=== PATIENT | female | born 1995 | race Hispanic/Latino ===

== ENCOUNTER 2020-04-04 18:00 | Inpatient (IN) | payer OTHER ==
[~2020-04-04] VITALS: Ht 154.9 cm; Wt 76.2 kg
--- OUTSIDE RECORDS SUMMARY | ~2020-04-04 | XMS | Encounter Summary ---
Demographics + + + | Address | [address] | | | [place] [address] | + + + | Home Phone | | + + + | Preferred Language | Unknown | + + + | Marital Status | Unmarried Domestic Partner | + + + | Advent Affiliation | NRP | + + + | Race | Unknown | + + + | Ethnic Group | or | + + + Author + + + | Author | [facility] | + + + | Organization | [facility] | + + + | Address | Unknown | + + + | Phone | Unavailable | + + + Support + + +---------+ + | Name | Relationship | Address | Phone | + + +---------+ + | Fatuma Patel | ECON | Unknown | | + + +---------+ + Care Team Providers + +------+ + | Care Card Clothier Name | Role | Phone | + +------+ + | No Pcp Per Patient | PCP | Unavailable | + +------+ + Reason for Visit + + + | Reason | Comments | + + + | | | + + + | Insertion of IUD | | + + + Encounter Details +--------+---------+ + + + | Date | Type | Department | Care Team | Description | +--------+---------+ + + + | 08// | Office | [facility] JohnGeri dozier, | Encounter for IUD | | 2017 | Visit | [facility] | [address] | insertion (Primary | | | | Pavilion [address] | Dx) | | | | [address] | [place], [place] | | | | | Pavilion, 7th floor | [address] | | | | | [place], [place] | [phone] | | | | | [address] | | | | | | [phone] | | | +--------+---------+ + + + Social History + +-------+ +--------+------+ | Tobacco Use | Types | Packs/Day | Years | Date | | | | | Used | | + +-------+ +--------+------+ | Never Smoker | | | | | + +-------+ +--------+------+ + +---+---+---+ | Smokeless Tobacco: | | | | | Never Used | | | | + +---+---+---+ + + +---------+ + | Alcohol Use | Drinks/Week | oz/Week | Comments | + + +---------+ + | No | | | | + + +---------+ + + + + | Sex Assigned at | Date Recorded | | | | + + + | Not on file | | + + + + + + + | Job Start Date | Occupation | Industry | + + + + | Not on file | Not on file | Not on file | + + + + + + + + | Travel History | Travel Start | Travel End | + + + + + + | No recent travel history available. | + + documented as of this encounter Last Filed Vital Signs + + + + + | Vital Sign | Reading | Time Taken | Comments | + + + + + | Blood Pressure | 112/72 | 04/14/2017 3:05 PM | | | | | PDT | | + + + + + | Pulse | 76 | 04/14/2017 3:05 PM | | | | | PDT | | + + + + + | Temperature | 36.9 C (98.4 F) | 04/14/2017 3:05 PM | | | | | PDT | | + + + + + | Respiratory Rate | - | - | | + + + + + | Oxygen Saturation | - | - | | + + + + + | Inhaled Oxygen | - | - | | | Concentration | | | | + + + + + | Weight | 63.3 kg (139 lb 8 | 04/14/2017 3:05 PM | | | | oz) | PDT | | + + + + + | Height | 153 cm (5' 0.25") | 04/14/2017 3:05 PM | | | | | PDT | | + + + + + | Body Mass Index | 27.02 | 04/14/2017 3:05 PM | | | | | PDT | | + + + + + documented in this encounter Patient Instructions Patient Instructions Geri Lopez MD - 04/14/2017 3:00 PM PDTProgestin IUD Aftercare Instructions Progestin IUD (Mirena, Marissa, Liletta) Begins working to prevent in 7 days Use a backup method for the first 7 days Mirena & Kyleena is approved for 5 years Marissa & Liletta are approved for 3 years Congratulations on your progestin IUD! You have chosen a highly effective, long-lasting, r eversible contraceptive method. Here are some ways you can take care of yourself in the fir st 2 weeks following IUD placement, and some things to look out for while you are using your IUD. If you have any concerns about your IUD at any time, call the [facility] at so we can help. Follow-up No follow-up visit is necessary unless you have problems or questions but we do recommen d that you check on your IUD by feeling the strings 1-2 weeks after placement (see below for how to do this). If you feel more comfortable having us do this first check, you are welco me to have a follow up visit at the [facility]. How to Check IUD Strings ? Your IUD has strings attached that come out of your cervix into the back of the vagina. T hey are usually a few centimeters long. We recommend checking the strings 1-[address] acement to make sure the IUD is in place. ? To feel your strings, wash your hands and insert one finger into your vagina, feeling for the cervix. The cervix is located toward the back of the vagina and feels firm, like the ti p of your nose. Once you feel the cervix, feel for a string coming out of it. Take care not to pull on the string as you can pull out the IUD very easily. ? It is not required that you check your strings regularly, but it is a way to make sure yo ur IUD is in place. Image courtesy of [employer]. https://www.[employer].org.uk Progestin IUD User Frequently Asked Questions: Can I get on the IUD? ? with an IUD is very rare, but it can happen in less than 1% of women. If you szymanski ve any concern that you might be with the IUD, take a test. When does the IUD start working to prevent ? The Mirena, Marissa and Liletta IUDs take 7 days to become effective in preventing pregna ncy. If you decide to have sex before the first 7 days have passed, use a back-up method of contraception to prevent , like condoms. What if I m when the IUD is put in? Although we check a urine test prior to insertion of an IUD, some very early pregnancies may not be detectable on a urine test. If you have any concerns that you may have symptoms of with the IUD in place, please take a test and/or contact us. When can I return to my normal activities? You can safely return to work or school today. We recommend waiting a couple days to resume sexual activity to allow your uterus time to get used to having the IUD in place. It is safe for you to resume all activities, including exercise, as soon as you feel li ke it. Listen to your body. We recommend avoiding tampons for a few days following IUD placement but then it is fin e to use them as you normally would. Does the IUD protect me from sexually transmitted infections (STIs) or HIV/AIDS? ? The IUD does not provide protection against STIs or HIV/AIDS. Condoms are the only way to protect you from these infections. What can I do for pain and cramping? Mild to moderate cramping pain, similar to menstrual cramps, is normal for several days after your IUD placement. This discomfort should improve dramatically within the first 1-2 days after insertion. Some intermittent cramping may continue for 1-2 weeks after insertio n, but should be continually improving. You can treat cramping with a heating pad and an brmp-wnu-yrpqyvq pain medicine, such a s acetaminophen (Tylenol), ibuprofen (Advil, Motrin), and naproxen (Aleve) if needed. Read and follow all instructions on the label. If you are able to take NSAIDs (ibuprofen or naproxen), it can be helpful to take these medications on a scheduled basis for the first few days after insertion. Take with food/mi lk. Suggested regimens include: Naproxen 440mg (two 220mg tabs) twice daily for 3-5 days Ibuprofen 600mg (three 200mg tabs) every 6 hours for 3-5 days Ibuprofen 800mg (four 200mg tabs) every 8 hours for 3-5 days If you cannot take NSAIDs, you can take acetaminophen (Tylenol): Acetaminophen 650-1000 mg every 8 hours (do not exceed 3250mg of acetaminophen in a 24 hour time period) for 3-5 d ays If your pain is severe, worsening over time, and is not improving with these therapies, call the [facility] at [facility]. What bleeding changes can I expect? In the first 3-6 months after insertion, your body is adjusting and you may notice some changes to your bleeding pattern. During this time, your period may be irregular, and in some instances, your bleeding may temporarily increase. You may also have frequent spottin g or light bleeding. All of these changes are expected and very normal. With the progestin IUDs, your periods may get electrical engineering drafting officer, less frequent, or go away all to gether. In some women irregular bleeding persists. These changes in menstrual bleeding are normal and safe. Most women settle into a consistent bleeding pattern after 6 months of use. If you are not happy with the way the IUD impacts your bleeding pattern after 6 months, call your doct or or healthcare provider. Can the IUD come out? There is a small chance that your IUD will expel, or fall out. This happens in a bout 3-5% of women in the first year of use. The longer the IUD is in place, the less like ly you are to expel it. Some women notice this happening and others may not. Signs of an IUD falling out can i nclude an increase in cramping and bleeding, lengthening of the strings, feeling the device in the cervix or vagina, seeing the device, or not being able to feel the strings. An IUD that is falling out or has fallen out is not working to prevent . If yo u have any concerns for this, call the [facility] at [facility] to discuss this or to be seen. In the meantime, we recommend you use a backup method. IUD Warning Signs Call the [facility] at [facility] if you have any of the following symptoms afte r IUD insertion: Within the first 2 weeks of insertion: ? Fever of 101F or greater ? Chills ? Abnormal or foul-smelling vaginal discharge ? Severe pain in your pelvis or abdomen At any time: ? Pain with sex ? Concern that the IUD came out ? Positive home test or symptoms of ? You cannot feel IUD strings ? Any concerns If you have any more questions about your IUD, we recommend www.bedsider.org or us at [facility] s [facility] . documented in this encounter Progress Notes Sylwia Maravilla MA - 04/14/2017 3:56 PM PDT Catherine was roomed and the following services completed: Vital Signs, Medication, Allergi es, Pain and Substance Use Urine HCG Negative /Obtained 2 pt identifiers per protocol.wc. Readback performed. Tray Set Up Sarah Moralez MD - 04/14/2017 3:00 PM PDT6wk Note- IUD insertion 04/14/2017 ID: Catherine Meredith is a 22 y.o. female s/p uncomplicated on 03/02/2017. Preg lorin complicated by history of delivery at 36w0d and first child with hemophagocyti c lymphohistiocytosis who is currently in PICU s/p BMT. S- Feels well overall from a perspective. Back to normal activities [facility]. Per pt, he seems to be doing worse which is stressful and distressing for her. She states her family comes up from [place] every weekend to help and she feels adequate ly supported. She has also been receiving support from PICU SW. Mood- appropriately sad but denies any signs/sx of depression or anxiety Feeding type: breast feeding is going well, just got an electric pump which is helpful Pain: denies O: LMP 06/10/2016 | ? Unknown gen- NAD abd- soft nontender, fundus nontender IUD INSERTION PROCEDURE Negative test in clinic- patient hasn't had intercourse since delivery A complete discussion of the risks and benefits of IUD use and the details of the insertion procedure was held with the patient. We discussed the risks, including bleeding, infection, damage to surrounding structures, perforation, failure/ectopic , expulsion with lo ss to contraceptive efficacy, pain, vasovagal reaction. All questions were answered. A cons ent form was signed. Prior to the beginning of the procedure, the team paused to verify the patient s identity , the procedure to be performed (in accordance with the consent,) and the correct side/site. The patient was positioned appropriately. All relevant images and results were properly lab eled and displayed. We addressed antibiotic prophylaxis and fluids for irrigation as applica ble to this patient. Any safety precautions were addressed. Preprocedure medications: patient reports taking ibuprofen prior to her visit, heat pack pr ovided IUD Lot # [id number] The patient was placed in low lithotomy. A bimanual exam was performed and the uterus note d to be anteverted. A speculum was placed and the cervix swabbed with betadine. A tenacul um was placed on the anterior cervical lip. No cervical dilation was required and no paracer vical block was performed. The uterus was sounded to 8cms. The Mirena IUD was placed to the uterine fundus without difficulty. The strings were cut to 3cms. The tenaculum was remove d and hemostasis was ensured. The speculum was removed. The patient tolerated the procedur e well. A/P 22 y.o. female s/p uncomplicated on 03/02/17. Her course has bee n complicated by her first child in the PICU s/p BMT, living at [facility] and th e social/emotional stress associated with these things. Overall, she feels adequately suppor savana. Uncomplicated Mirena IUD placement today. - IUD placed today - Encouraged her to call or return with any questions or concerns - Provided AVS for progestin IUD - Offered meeting with Alysha Plata- patient declines at this time as she has been working with PICU SW - Reviewed signs/sx of mood disorder and although patient appears to be doing qu ite well given her circumstances, did discuss that she was at increased risk secondary to he r situation. She was quiet during visit but appropriate. Encouraged her to reach out at any time if she has any questions or concerns regarding her mood or if she needs subsequent supp ort or resources. This patient was seen and discussed with Dr. Portillo, who agrees with the assessment and plan . Geri Lopez MD PGY2, Obstetrics and Gynecology documented in this encounter Plan of Treatment Not on filedocumented as of this encounter Procedures + +--------+ + + + | Procedure Name | Priori | Date/Time | Associated Diagnosis | Comments | | | ty | | | | + +--------+ + + + | HCG URINE(N/C),POC | Routin | 04/14/2017 | Encounter for IUD | Results for this | | | e | 3:22 PM | insertion | procedure are in the | | | | PDT | | results section. | + +--------+ + + + documented in this encounter Results HCG URINE(N/C),POC (04/14/2017 3:22 PM PDT) + + + + + + | Component | Value | Ref Range | Performed | Pathologist | | | | | At | Signature | + + + + + + | HCG URINE, | Negative | Negative | [facility] - | | | POC | | | [facility] | | | | | | [facility] | | | | | | OF CARE | | | | | | TESTS | | + + + + + + + + | Specimen | + + | Urine - Urine | | (substance) | + + + + + + + | Performing | Address | City/State/Zipcode | Phone Number | | Organization | | | | + + + + + | [facility] | [address] | [place], [place] | | | [facility] | [facility] | [address] | | | TESTS | | | | + + + + + documented in this encounter Visit Diagnoses + + | Diagnosis | + + | Encounter for IUD insertion - Primary Encounter for insertion of intrauterine | | contraceptive device | + + documented in this encounter Administered Medications + +--------+ +--------+------+------+ | Medication Order | MAR | Action | Dose | Rate | Site | | | Action | Date | | | | + +--------+ +--------+------+------+ | levonorgestrel (MIRENA) 20 | Given | 04/14/20 | 1 each | | | | mcg/24 hr (5 years) intrauterine | | 17 4:13 | | | | | device 1 each 1 each, | | PM PDT | | | | | intrauterine, ONCE, 1 dose, Mon | | | | | | | 04/14/17 at 1615 | | | | | | + +--------+ +--------+------+------+ +---+---+ | | | +---+---+ documented in this encounter
--- OUTSIDE RECORDS SUMMARY | ~2020-04-04 | XMS | Clinical Summary ---
Demographics + + + | Address | [address] | | | [place] [address] | + + + | Home Phone | | + + + | Preferred Language | Unknown | + + + | Marital Status | Unmarried Domestic Partner | + + + | Rastafari Affiliation | NRP | + + + | Race | Unknown | + + + | Ethnic Group | or | + + + Author + + + | Author | [facility] REVENUE LOCATIONS | + + + | Organization | NON REVENUE LOCATIONS | + + + | Address | Unknown | + + + | Phone | Unavailable | + + + Support + + +---------+ + | Name | Relationship | Address | Phone | + + +---------+ + | Fatuma Patel | ECON | Unknown | | + + +---------+ + Care Team Providers + +------+ + | Care Audio Production Manager Name | Role | Phone | + +------+ + | No Pcp Per Patient | PCP | Unavailable | + +------+ + Source Comments [facility] is fully live on both [facility] and [facility] Allergies No Known Allergies Medications + + + +---------+------+------+-------+ | Medication | Sig | Dispensed | Refills | Star | End | Statu | | | | | | t | Date | s | | | | | | Date | | | + + + +---------+------+------+-------+ | vitamin | Take 1 tablet by | 60 | 3 | 06/ | | Activ | | +FE (VOL PLUS) 27 mg | mouth once daily. | tablet | | /20 | | e | | iron- 1 mg oral | | | | 17 | | | | tablet | | | | | | | + + + +---------+------+------+-------+ | docusate sodium | Take 1 capsule by | 80 | 2 | 06/2 | | Activ | | 100 mg oral capsule | mouth twice daily as | capsule | | 5/20 | | e | | | needed. | | | 17 | | | + + + +---------+------+------+-------+ | ibuprofen 600 mg | Take 1 tablet by | 30 | 0 | 08/0 | | Activ | | oral tablet | mouth every six | tablet | | 7/20 | | e | | | hours as needed. | | | 17 | | | + + + +---------+------+------+-------+ Active Problems + + + | Problem | Noted Date | + + + | Encounter for supervision of normal in third trimester | 02/19/2017 | + + + + + | Overview: Transfer of Care from [facility] at | | 36 weeks (pt's older child admitted at [facility])- FoB: | | Wren- Dating Criteria: [LMP=22wk US] - [ ] Labs: Rh | | [+], Ab [neg], Rubella [immune], GC/CT/HIV/HepBSAg/RPR [neg], 3rd | | trimester RPR [ ] - [x] HgbA1C: 4.9% - [x] Pap: 01/2017 NILM - | | [x] CBC: Hct [33] , Plt [211], 3rd trimester CBC: Hct [36], Plt | | [199] - [x] Urine Cx (12-16wks): insignificant growth - [x] 2hr | | gtt at 24-28wks: normal 1hr GTT (104)- [ ] Flu Shot (May-Aug):- | | [x] Tdap (27-36wks): 01/20- [ ] Genetic Screening (SS#1:11-14wks, | | SS#2: 15-20wks): n/a due to scant care. Normal anatomy | | scan.- [ ] Ultrasounds: 11/14/2016 (22w3d): SIUP, cephalic, | | anterior placenta w/o previa. TVCL 3.9cm. Incomplete but normal | | anatomy 11/28/16 (24w3d): Normal anatomy complete, mild | | polyhydramnios with MVP 8.2cm 02/19/2017 (36w2d): BSUS cephalic, | | NIA 13- [x] GBS at 35wks: negative- [x] sex: Girl- [ ] MOD: | | Expected vaginal. Planning private cord blood banking.- [ ] | | ToD: Expectant management- [ ] :- [ ] MOC: LARC | | options discussed 02/19. Considering nexplanon vs post-placental | | Mirena, readdress next visit Last Assessment & Plan: Seen by | | Alysha Plata, will get help with bed, and check on next | | weekCephalic by ultrasoundReviewed resources, how to access L&D | |- [ ] MOC: LARC options discussed 02/19. Considering nexplanon vs post-placental Mirena, re address next visit | | | | | | Last Assessment & Plan: Seen by Alysha Plata, will get help with bed, and check on nex t week | |Cephalic by ultrasound | |Reviewed resources, how to access L&D | + + + + + | History of delivery | 02/19/2017 | + + + + + | Overview: Reportedly with advanced cervical dilation to 3cm | | at 34 weeksDelivery at 36 weeks after PPROM, rapid laborCounseled | | by Jake PÉREZ 11/18/16 at 22w3d. Declined 17-OHP due to fear of | | needles; had lapse in care so did not use vaginal progesterone | | Last Assessment & Plan: 02/19/2017: Reviewed obstetric history. | | PPROM, PTL precautions reviewed. | + + Family History + + +------+ + | Medical History | Relation | Name | Comments | + + +------+ + | Other | Child | | Hemophagocytic Lymphohistiocystosis (HLH) | | | | | currently here at [facility] receving a Bone | | | | | Marrow Transplant | + + +------+ + | Diabetes | Maternal | | | | | Grandmoth | | | | | er | | | + + +------+ + | Hypertension | Mother | | | + + +------+ + + +------+--------+ + | Relation | Name | Status | Comments | + +------+--------+ + | Child | | | | + +------+--------+ + | Maternal Grandmother | | | | + +------+--------+ + | Mother | | | | + +------+--------+ + Social History + +-------+ +--------+------+ | [...] recent travel history available. | + + Last Filed Vital Signs + + + [...] + + + | Respiratory Rate | 16 | 03/04/2017 9:42 AM | | | | | PDT | | + + + + + | Oxygen Saturation | 99% | 03/04/2017 9:42 AM | | | | | PDT | [...] | | + + + + + Plan of Treatment + + + + + | Health Maintenance | Due Date | Last Done | Comments | + + + + + | Influenza (Flu) | | 12/10/2010, 07/15/2007 | | | vaccination (#1) | 9 | | | + + + + + | Pneumococcal | Aged Out | | No longer eligible | | vaccination | | | based on patient's | | | | | age to complete this | | | | | topic | + + + + + Results Not on filefrom Last 3 Months Insurance + +--------+ +--------+-------+---------+--------+ | Payer | Benefi | Subscriber | Effect | Phone | Address | Type | | | t Plan | ID | jose martin | | | | | | / | | Dates | | | | | | Group | | | | | | + +--------+ +--------+-------+---------+--------+ | [employer] | [employer] | xxxxxxxxxx | | | | Medica | | | PROVID | | [id number] | | | id | | | ENCE | | esent | | | | | | HLTH | | | | | | | | SHARE | | | | | | + +--------+ +--------+-------+---------+--------+ + +--------+ +--------+ + + | Guarantor Name | Accoun | Relation to | Date | Phone | Billing Address | | | t Type | Patient | of | | | | | | | | | | + +--------+ +--------+ + + | MasoudCatherine Ollie | Person | Self [birth year] | [address] | | | [place] | | 1994 | [phone] | [place] [address] | | | lynda | | | 6 (Home) | | + +--------+ +--------+ + + Advance Directives + + + + + | Code Status | Date | Date | Comments | | | Activated | Inactivated | | + + + + + | Full Code | 03/02/2017 | 03/04/2017 | | | | 2:23 PM | 10:38 PM | | + + + + + + + + +---+ | | | | | + + + +---+ | Full Code | 03/02/2017 | 03/02/2017 | | | | 7:49 AM | 2:23 PM | | + + + +---+
--- OUTSIDE RECORDS SUMMARY | ~2020-04-04 | XMS | Encounter Summary ---
Demographics + + + | Address | [address] | | | [place] [address] | + + + | Home Phone | | + + + | Preferred Language | Unknown | + + + | Marital Status | Unmarried Domestic Partner | + + + | Methodist Affiliation | NRP | + + + | Race | Unknown | + + + | Ethnic Group | or | + + + Author + + + | Author | [facility] | + + + | Organization | [facility] | + + + | Address | Unknown | + + + | Phone | Unavailable | + + + Support + + +---------+ + | Name | Relationship | Address | Phone | + + +---------+ + | Fatuma Patel | ECON | Unknown | | + + +---------+ + Care Team Providers + +------+ + | Care C Application Developer Name | Role | Phone | + +------+ + | No Pcp Per Patient | PCP | Unavailable | + +------+ + Reason for Visit +--------+ + | Reason | Comments | +--------+ + | New Ob | | +--------+ + Maternity Services (Routine) +--------+--------+ + + + + | Status | Reason | Specialty | Diagnoses / | Referred By | Referred To | | | | | Procedures | Contact | Contact | +--------+--------+ + + + + | Closed | | Obstetrics & | Diagnoses | [facility] | | | | Gynecology | | Epic Dept | [facility] | | | | | | | [address] | | | | | | | [address] | | | | | | | [address] | | | | | | | [address] | | | | | | | floor | | | | | | | [place], [place] | | | | | | | [address] | | | | | | | Phone: | | | | | | | [phone] | | | | | | | Fax: | | | | | | | [phone] | +--------+--------+ + + + + Encounter Details +--------+ + + + + | Date | Type | Department | Care Team | Description | +--------+ + + + + | 02/19/ | [facility] | Louise Paez, | New Ob | | 2017 | Initial | [facility] | ,[facility] [address] | | | | | [address] | [address] | | | | | [address] | [place], [place] | | | | | [address] | [address] | | | | | [place], [place] | [phone] | | | | | [address] | | | | | | [phone] | | | +--------+ + + + + Social History + +-------+ [...] + + + | Blood Pressure | 116/68 | 02/19/2017 2:43 PM | | | | | PDT | | + + + + + | Pulse | - | - | | + + + + + | Temperature | - | - | | + + + + + | Respiratory Rate | - | - | | + + + + + | Oxygen Saturation | - | - | | + + + + + | Inhaled Oxygen | - | - | | | Concentration | | | | + + + + + | Weight | 67.8 kg (149 lb 6.4 | 02/19/2017 2:43 PM | | | | oz) | PDT | | + + + + + | Height | 152.6 cm (5' 0.08") | 02/19/2017 2:43 PM | | | | | PDT | | + + + + + | Body Mass Index | 29.1 | 02/19/2017 2:43 PM | | | | | PDT | | + + + + + documented in this encounter Patient Instructions Patient Instructions Louise Preston MD,MPH - 02/19/2017 4:00 PM PDTIt was nice to meet yo u today! I wish your son the best of luck. Contact information for questions/concerns: To contact your provider, please call the [facility] clinic at during daytime hours. The number for Labo r and Delivery is [phone]. Reasons to call the doctor: If you are concerned that your baby isn t moving enough: After a meal, lie down on your side (either side is fine). Record baby movements, baby should move 10 times in 2 hours. If baby does not move 10 times in 2 hours, call Labor and Delivery immediately. Bag of water: A gush or trickle of fluid from your vagina may mean your bag of water has broken. Put on a sanitary pad and call Labor and Delivery. Note the time and color of the fluid. You may take a shower No tub bath or sex. Bleeding: A small amount of bleeding or spotting with a mucous discharge after a pelvic exam or sex m ay be normal, bleeding like a period or more is not. If you are having any concerns about bleeding, call Labor and Delivery. Chills and fever If you are having chills and/or a fever greater than 100.4o F, call Labor and Delivery. Headache, visual changes, abdominal pain or vomiting, or any of the following: Headaches that are not relieved with rest, hydration, and Tylenol. Visual changes such as blurring or difficulty seeing. Heartburn not relieved by an antacid (Maalox, Tums, Mylanta, etc) Constant abdominal pain or vomiting. Call Labor and Delivery immediately. Contractions (labor pains): Contractions will become longer and stronger and remain long and strong in any position, i. e. walking, resting on your side, sitting or standing. Don t forget to drink water or fluids every couple of hours and eat small frequent meals, i.e. soup, crackers, toast and fruit. Contractions will become difficult to walk and talk through this is when you start to t duane the contractions. Time contractions from the start of one contraction to the start of the next. If you are in constant, severe pain with no relief between contractions, call Florentin montiel. Visit - Week 36 What if it s a BOY? Parents can sometimes be confused about whether they should have their baby boy circumcised . It s a very personal decision and may be guided by personal or health reasons. It may be helpful to gather some information about some of the pros and cons of circumcision and th e things to think about when making your decision. The [employer] has some helpful information that you can find by going to: www.healthychildren.org and searching for circumcision . If you decide to have your baby boy circumcised, it can sometimes be done during your hospi nadeen stay. Check to see if your insurance company will pay for it ..some don t, in which case you will have to pay for the procedure. At [facility], it s possible to have the procedur e done in either our Pediatric or Family Medicine clinics at one of the first pediatric appo intments. If you plan to take your baby to a private clinic for pediatric care, call that [facility] and find out if that provider actually does circumcisions (not all do). Car Seats Automobile accidents are the leading cause of in people ages 1-45. You will need an approved car seat to take your baby home from the hospital. Let us know if you need help ob taining a car seat for your . Arrange to have your car seat in your hospital room on the day of discharge ..we will help tailor the fit to your baby. If you re uncertain about fitting your baby s car seat into your car, we can help you: Car Seat Safety Checks at [facility] Call [phone] to schedule an appointment Hours: Mon Fri, 10am - 3pm documented in this encounter Progress Notes Louise Preston MD,MPH - 02/19/2017 4:00 PM PDT OB Visit ID: Catherine Meredith is a 22 y.o. at 36w2d by LMP=22wk US here to establish OB car e. HPI: Transfer of care at 36 weeks as her 5yo son is admitted to [facility] with hemophagoc ytic lymphohistocytosis and in need of a bone marrow transplant, so she would like to delive r at [facility]. She is originally from [place], and had a few visits there, but subsequently m elizabeth to the [place] area when her son fell ill. She also had a few visits at [facility] while her son was admitted to [facility]. Today, she feels well overall. Staying at [facility] and requests refill of PNV s to [facility] pharmacy. Here with a friend while FOB is with her eldest son. Many questions to day about whether the hospital will give her a car seat/diaper bag, what type of formula to feed the baby, location of labor and delivery, how will she know if she lost her mucus plug, etc. Denies contractions, VB, LOF, THAO, vision changes, RUQ pain. Good movement. This was an unplanned ; was not using contraception at the time. Has used a Miren a IUD in the past. Would eventually like more children but undecided re: PPBCM. complicated by: #History of delivery: PPROM followed by rapid labor at 36 weeks. 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 LMP: 06/10/2016. Periods regular, q 28 days, lasting 5 days. Last pap: 7, normal. Hx abnormal Pap smears: no. Hx STD's: No. Medical History: Past Medical History: Diagnosis Date History of chicken pox Surgical History: Past Surgical History Procedure Laterality Date Tonsillectomy 1998 Family History: Family History Problem Relation Other Child Hemophagocytic Lymphohistiocystosis (HLH) currently here at [facility] receving a Bone Marrow T ransplant Hypertension Mother Diabetes Maternal Grandmother Social History: Social History Substance Use Topics Smoking status: Never Smoker Smokeless tobacco: Never Used Alcohol use No Social History Narrative LW: Live with boyfriend and son in a home in [facility] ([place] Cats in home: No. Cat litter box? N/A. Working smoke alarms: Yes. Guns in the house: NO. Methodist preference: Caltholic. Agreeable to blood transfusion: Yes. Racial ethnicity: /. Primary Language: Malian. Years of Education. Degree in GED. Pt currently unemployed, and her /partner works as cook. Domestic Violence: No. Medications: Current Outpatient Prescriptions: MEDICAL SUPPLY, MISCELLANEOUS (RX ELECTRIC BREAST PUMP), Indications: ROUTINE Z39.2 (ICD10) V24.1 (ICD9), Disp: 1 each, Rfl: 0 vitamin +FE (VOL PLUS) 27 mg iron- 1 mg oral tablet, Take 1 tablet by mouth once d aily., Disp: 60 tablet, Rfl: 3 Allergies: Allergies No Known Allergies ROS: Otherwise negative except those symptoms mentioned in HPI. Physical Exam BP 116/68 | Ht 1.526 m (5' 0.08") | Wt 67.8 kg (149 lb 6.4 oz) | LMP 06/10/2016 | BMI 29.1 kg/(m^2) Gen: NAD Abd: soft, nontender, gravid Fundal Height: 35 FHT: 130s Ext: 2+ pulses, no edema BSUS: Cephalic, NIA 13.1 Urine dipstick shows trace leuks, negative for all other components Assessment and Plan: Catherine Meredith is a 22 y.o. at 36w2d here for a return OB v isit with the following issues: Patient Active Problem List Diagnosis Date Noted Encounter for supervision of normal in third trimester 02/19/2017 Priority: 1 Overview Note: Transfer of Care from [facility] at 36 weeks (pt's older child admitted at [facility]) - FoB: Bernard - Dating Criteria: [LMP=22wk US] - [ ] Labs: Rh [+], Ab [neg], Rubella [immune], GC/CT/HIV/HepBSAg/RPR [neg], 3rd t rimester RPR [ ] - [x] HgbA1C: 4.9% - [x] Pap: 01/2017 NILM - [x] CBC: Hct [33] , Plt [211], 3rd trimester CBC: Hct [36], Plt [199] - [x] Urine Cx (12-16wks): insignificant growth - [x] 2hr gtt at 24-28wks: normal 1hr GTT (104) - [ ] Flu Shot (May-Aug): - [x] Tdap (27-36wks): 01/20 - [ ] Genetic Screening (SS#1:11-14wks, SS#2: 15-20wks): n/a due to scant care. N ormal anatomy scan. - [ ] Ultrasounds: 11/14/2016 (22w3d): SIUP, cephalic, anterior placenta w/o previa. TVCL 3.9cm. Incomplete b ut normal anatomy 11/28/16 (24w3d): Normal anatomy complete, mild polyhydramnios with MVP 8.2cm 02/19/2017 (36w2d): BSUS cephalic, NIA 13 - [ ] GBS at 35wks: collected 02/19/2017 - [x] sex: Girl - [ ] MOD: Expected vaginal. Planning private cord blood banking. - [ ] ToD: Expectant management - [ ] : - [ ] MOC: LARC options discussed 02/19. Considering nexplanon vs post-placental Mirena, re address next visit Assessment & Plan Note: 02/19/2017: First visit at [facility] today. Cephalic on BSUS. GBS collected. Unplan tamir --discussed PPBCM options especially as patient would be good candidate for imm ediate LARC (pt distance from [facility], high risk of loss to follow up in light of ol franklyn child's acute medical needs). Considering nexplanon vs post-placental mIUD. -Rx for breast pump and refill of vitamin given -Will alert Alysha Plata of patient's case as she had many questions re: resources today -Precautions reviewed -RTC 1 week History of delivery 02/19/2017 Priority: 2 Overview Note: Reportedly with advanced cervical dilation to 3cm at 34 weeks Delivery at 36 weeks after PPROM, rapid labor Counseled by Jake PÉREZ 11/18/16 at 22w3d. Declined 17-OHP due to fear of needles; had laps e in care so did not use vaginal progesterone Assessment & Plan Note: 02/19/2017: Reviewed obstetric history. PPROM, PTL precautions reviewed. RTC 1 week. The patient was seen with Dr. Hall, who agrees with the assessment and plan. Louise Preston MD,MPH eannine Mata M A - 02/19/2017 3:59 PM PDT Catherine was roomed and the following services completed: Vital Signs, Medication, Allergi es, Pain and Substance Use Urine Dipstick /Obtained two patient identifiers per protocol. Abdominal Ultrasound d ocumented in this encounter Plan of Treatment Not on filedocumented as of this encounter Procedures + +--------+ + + + | Procedure Name | Priori | Date/Time | Associated Diagnosis | Comments | | | ty | | | | + +--------+ + + + | STREP B OB DNA PCR | Routin | 02/19/2017 | Encounter for | Results for this | | W/RFLX IF IND, SWAB | e | 3:16 PM | supervision of other | procedure are in the | | | | PDT | normal in | results section. | | | | | third trimester | | + +--------+ + + + | UA 4 DIP N/C, POC | Routin | 02/19/2017 | Encounter for | Results for this | | | e | 3:13 PM | supervision of other | procedure are in the | | | | PDT | normal in | results section. | | | | | third trimester | | + +--------+ + + + documented in this encounter Results STREP B OB DNA PCR W/RFLX IF IND, SWAB (02/19/2017 3:16 PM PDT) + + + + + + | Component | Value | Ref Range | Performed | Pathologist | | | | | At | Signature | + + + + + + | GROUP B DNA | Negative | Negative | [facility] | | | , PCR | | | LABORATORY | | | | | | SERVICES, | | | | | | CORE | | + + + + + + | PEN/CEPH | No | | [facility] | | | ALLERGY | | | LABORATORY | | | | | | SERVICES, | | | | | | CORE | | + + + + + + + + | Specimen | + + | Swab - Pooled | | specimen from | | vaginal introitus | | and rectal swab | | (specimen) | + + + + + + + | Performing | Address | City/State/Zipcode | Phone Number | | Organization | | | | + + + + + | [facility] | [address] | [place] [address] | | | SERVICES, CORE | [address] | | | + + + + + UA 4 DIP N/C, POC (02/19/2017 3:13 PM PDT) + + + + + + | Component | Value | Ref Range | Performed | Pathologist | | | | | At | Signature | + + + + + + | APPEARANCE | Clear | | [facility] - | | | (UA DIP), | | | [facility] | | | POC | | | [facility] | | | | | | OF CARE | | | | | | TESTS | | + + + + + + | COLOR (UA | Yellow | | [facility] - | | | DIP), POC | | | [facility] | | | | | | [facility] | | | | | | OF CARE | | | | | | TESTS | | + + + + + + | GLUCOSE (UA | Negative | Negative - | [facility] - | | | DIP), POC | | Trace mg/dL | [facility] | | | | | | [facility] | | | | | | OF CARE | | | | | | TESTS | | + + + + + + | PROTEIN (UA | Negative | Neg - Trace | [facility] - | | | DIP), POC | | mg/dL | [facility] | | | | | | [facility] | | | | | | OF CARE | | | | | | TESTS | | + + + + + + | LEUKOCYTES | Trace (A) | Negative | [facility] - | | | (UA DIP), | | | [facility] | | | POC | | | [facility] | | | | | | OF CARE | | | | | | TESTS | | + + + + + + | NITRITES | Negative | Negative | [facility] - | | | (UA DIP), | | | [facility] | | | POC | | | [facility] | | [...] [facility] | [address] | [place], [place] | | | [facility] | [facility] | [phone] | | | TESTS | | | | + + + + + documented in this encounter Visit Diagnoses + + | Diagnosis | + + | Encounter for supervision of other normal in third trimester - Primary | + + documented in this encounter
--- OUTSIDE RECORDS SUMMARY | ~2020-04-04 | XMS | Encounter Summary ---
Demographics + + + | Address | [address] | | | [place] [address] | + + + | Home Phone | | + + + | Preferred Language | Unknown | + + + | Marital Status | Unmarried Domestic Partner | + + + | Sabianist Affiliation | NRP | + + + | Race | Unknown | + + + | Ethnic Group | or | + + + Author + + + | Author | [facility] | + + + | Organization | [facility] | + + + | Address | Unknown | + + + | Phone | Unavailable | + + + Support + + +---------+ + | Name | Relationship | Address | Phone | + + +---------+ + | Fatuma Patel | ECON | Unknown | | + + +---------+ + Care Team Providers + +------+ + | Care Booster Station Operator Name | Role | Phone | + +------+ + | No Pcp Per Patient | PCP | Unavailable | + +------+ + Reason for Visit AUTH/CERT +--------+--------+ + + + + | Status | Reason | Specialty | Diagnoses / | Referred By | Referred To | | | | | Procedures | Contact | Contact | +--------+--------+ + + + + | | | | | | | +--------+--------+ + + + + Encounter Details +--------+ + + + + | Date | Type | Department | Care Team | Description | +--------+ + + + + | 03/02/ | Hospital | [facility] [address] | Abby Ireland, | | | 2017 - | Encounter | [address] | MD [address] [facility] | | | | | [id number] | [address] | | | 03/04/ | | Nicky | [place], [place] | | | 2016 | | [facility] | [address] | | | | | [place], [place] | [phone] | | | | | [address] | | | | | | [phone] | | | +--------+ + + + [...] + + + | Blood Pressure | 120/73 | 03/04/2017 9:42 AM | | | | | PDT | | + + + + + | Pulse | 76 | 03/04/2017 9:42 AM | | | | | PDT | | + + + + + | Temperature | 36.5 C (97.7 F) | 03/04/2017 9:42 AM | | | [...] + + + + | Weight | 68 kg (150 lb) | 03/02/2017 7:15 AM | | | | | PDT | | + + + + + | Height | 154.4 cm (5' 0.8") | 03/02/2017 7:15 AM | | | | | PDT | | + + + + + | Body Mass Index | 28.53 | 03/02/2017 7:15 AM | | | | | PDT | | + + + + + documented in this encounter Discharge Summaries Ann-Marie Dickens MD - 03/04/2017 6:38 AM PDT INPATIENT PROVIDER DISCHARGE SUMMARY Admission date: 03/02/2017 Discharge date: 03/04/2017 Principal final Diagnosis Yusuf at 37w6d, delivered History of PPROM at 36 weeks in prior 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 at 37w6d who presented to L&D for labor. Her pregnan cy was complicated by the above. She was admitted for labor. She needed nothing for augmenta tion and had an epidural for pain control. She had a normal spontaneous vaginal delivery aneudy t was uncomplicated over an intact perineum. She delivered a viable infant with weight and A pgars above. The patient was transferred to the mother baby unit where she recovered as expected. On PP D#2 her pain was well controlled, she was voiding, passing gas, ambulating and meeting all p ost milestones and was ready for discharge. She plans to continue and t o use a mirena IUD for control to be placed at her 6 week visit. Diet Regular Activities/Other orders: * No strenuous activity or heavy lifting greater than 10 lbs for 6 weeks. * If you had a section, no tub bathing, hot-tubs, or swimming for 6 weeks. Showers OK. * Nothing in the vagina for 6 weeks (no sexual intercourse, tampons, or douching) * Please do not drive while under the influence of narcotics or for the first 2 weeks if yo u had a section * OK: walk up stairs and perform minimal housework Contact information for questions/concerns: To contact your provider, please call the [facility] clinic at during daytime hours. Reasons to call the doctor: 1. Difficulty breathing or unusual shortness of breath 2. Redness around or drainage from any incision site(s) or the vagina 3. Temperature above 100.4 F 4. Increasing abdominal pain that is not relieved by pain medications 5. Persistent nausea or vomiting 6. Vaginal bleeding requiring > 1 pad per hour Follow Up Follow up with [facility]ident [facility] 6 weeks post . DISCHARGE MEDICATIONS Current Discharge Medication List START taking these medications Details docusate sodium 100 mg oral capsule Take 1 capsule by mouth twice daily as needed. Qty: 80 capsule, Refills: 2 ibuprofen 600 mg oral tablet Take 1 tablet by mouth every six hours as needed. Take with fo od; do not exceed 5 tablets in 24 hours Qty: 80 tablet, Refills: 1 CONTINUE these medications which have NOT CHANGED Details vitamin +FE (VOL PLUS) 27 mg iron- 1 mg oral tablet Take 1 tablet by mouth once da lynda. Qty: 60 tablet, Refills: 3 Discharging Provider: Chrissie Discharging Attending: Tor PCP: NO PCP PER PATIENT Associated attestation - Eliud Lentz CNM - 03/04/2017 9:07 AM PDTATTENDING PROVIDER DISCHARGE SUMMARY ATTESTATION: Pt seen and examined with OB team interdisciplinary rounds 03/04/2017. Agree with discharge summary. Stable for discharge today. All questions answered. Follow-up as scheduled. ELIUD LENTZ CNM Instructor Department of [facility] [phone] documented in this encounter Discharge Instructions Instructions Riri Chopra, RN,IBCLC - 03/04/2017We have reviewed with you your home ca re instructions regarding care after . The Mother and Baby Care Booklet provided to yo u in the hospital is a guide you can use to prepare you for the first few days and weeks at home. You may also download the web lavelle and access helpful videos and important mother and new baby care information whenever and wherever you need it. For urgent requests, please contact the provider you plan to follow up with in clinic. Follow-up with your provider in 2 & 6 weeks. Please call to schedule your appoint ments. Discharge Nurse: Linda Wilkes RN Date: 03/04/2017 Discharge Time: 7:10 AM Discharge Feeding plan With baby: Enjoy holding your baby skin to skin to encourage Breast feed on demand - Follow baby's early feeding readiness cues Expect your baby to be interested in feeding a minimum of 8-12 times in a 24hr period Use breast compression to maximize breast milk transferred while baby is at breast Observe position & latch/suckling pattern at breast, look and listen for swallows If your breasts feel too full or uncomfortable, use warm cloth/shower before feeding to imp rove how your milk flows out of the breast. Then use cool packs on breasts after each feed. Schedule an outpatient appointment ([phone]) within the next 2-3 days, soon er if you have nipple pain, breast fullness does not soften after each feed, or redness and pain begin or worsen. This link will take you to the CDC website for the most current advice on storing your marbella carrascoiljuan safely at home: https://www.cdc.gov//recommendations/handling_breastmilk.htm rn lactation consultant: Riri Chopra RN,IBCLC documented in this encounter Medications at Time of Discharge + + + +---------+ + + | Medication | Sig | Dispensed | Refills | Start | End Date | | | | | | Date | | + + + +---------+ + + | docusate sodium | Take 1 capsule by | 80 | 2 | 03/02/20 | | | 100 mg oral capsule | mouth twice daily as | capsule | | 17 | | | | needed. | | | | | + + + +---------+ + + | vitamin | Take 1 tablet by | 60 | 3 | 02/20/20 | | | +FE (VOL PLUS) 27 mg | mouth once daily. | tablet | | 17 | | | iron- 1 mg oral | | | | | | | tablet | | | | | | + + + +---------+ + + documented as of this encounter Progress Notes Eliud Lentz CNM - 03/04/2017 6:05 AM PDTFormatting of this note might be different f rom the original. NOTE Date of service: 03/04/2017 ID: Catherine Meredith is a 22 y.o. PPD#2 s/p , EBL 250ml. Information for the patient's : Masoud, Girl [[id number]] Delivery Method: Vaginal, Spontaneous Delivery [250] Date: 03/02/2017 Time: 11:42 AM Weight: 2.892 kg (6 lb 6 oz) Gestational age: 37 6/7 APGARS 1 min: 9 APGARS 5 min: 9 ZXGHNS10 min: Interval Hx: -no acute events overnight -saw yesterday Subjective: Doing well. Pain is well controlled on po meds Voiding: without issue Tolerating PO: yes Ambulating: yes, no dizziness Flatus: yes Breast feeding without any issues Decreasing lochia Older child has Leukemia and is hospitalized here at [facility]. Pt will be going to [facility] to stay. Meds: Routine Meds Physical Exam: Last 24 hour min/max Temp: 36.9 C (98.4 F) Temp Min: 36.8 C (98.2 F) Max: 36.9 C (98.4 F) Pulse: 74 Pulse Min: 72 Max: 86 Resp: 18 Resp Min: 16 Max: 18 BP: 108/58 BP Min: 106/60 Max: 114/74 SpO2: 100 % SpO2 Min: 99 % Max: 100 % Body mass index is 28.53 kg/(m^2). General Appearance: Lying in bed, comfortable, NAD Abdomen: soft, non tender, fundus firm and 2 cm below the umbilicus. Extremities: WWP, NT, no edema bilateral lower extremities Lab CBC with diff last 72 hours (or 3 results) Recent Labs 03/02/17 0812 WBC 9.10 HB 12.9 HCT 39.1 PLT 196 Lab Results Component Value Date ABO O 03/02/2017 ABO O 03/02/2017 RH Positive 03/02/2017 RH Positive 03/02/2017 ABSCREEN Negative 03/02/2017 HIV non-reactive 11/07/2016 RPR Non Reactive 03/02/2017 RUBELLAAB immune 11/07/2016 HBSAG non-reactive 11/07/2016 Assessment and Plan: Catherine Meredith is a 22 y.o. PPD#2 s/p of viable female . 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 Delivery uncomplicated, wi th EBL 250mL. Pt is currently hemodynamically stable, afebrile, doing well. # Post Issues: Overall doing well. -Rhogam Not indicated -MMR Not indicated - Routine care. # : consult/support as needed. Previous child with cleft pallet. # Contraception: mirena IUD at 6 wks PP # Social Work/Case Management: Discharge planning discussed with patient. Screened for post depression. # Disposition: Anticipated Discharge Date: PPD# 2; Follow-up Clinic Date: [facility] at 6 w eeks post- Present at Rounds Attending: Tor Resident: Knapp Ann-Marie Morrison MD - 03/03/2017 3:35 AM PDT NOTE Date of service: 03/03/2017 ID: Catherine Meredith is a 22 y.o. PPD#1 s/p , EBL 250ml. Information for the patient's : Masoud, Girl [[id number]] Delivery Method: Vaginal, Spontaneous Delivery [250] Date: 03/02/2017 Time: 11:42 AM Weight: 2.892 kg (6 lb 6 oz) Gestational age: 37 6/7 APGARS 1 min: 9 APGARS 5 min: 9 [id number] min: Interval Hx: -no acute events overnight Subjective: Doing well. Pain is well controlled on po meds, having some cramping Voiding:without issue Tolerating PO: yes Ambulating: yes Flatus: yes Breast feeding without any issues Meds: Routine Meds Physical Exam: Last 24 hour min/max Temp: 36.7 C (98.1 F) Temp Min: 36.5 C (97.7 F) Max: 37.1 C (98.8 F) Pulse: 79 Pulse Min: 16 Max: 115 Resp: 16 Resp Min: 16 Max: 18 BP: 101/70 BP Min: 99/56 Max: 135/78 SpO2: 99 % SpO2 Min: 93 % Max: 100 % Body mass index is 28.53 kg/(m^2). Intake/Output Summary (Last 24 hours) at 03/03/17 0335 Last data filed at 03/02/17 1515 Gross per 24 hour Intake 710 ml Output 1550 ml Net -840 ml General Appearance: Lying in bed, comfortable, NAD Abdomen: soft, non tender, fundus firm and 2 cm below the umbilicus. Extremities: WWP, NT, trace edema bilateral lower extremities Lab CBC with diff last 72 hours (or 3 results) Recent Labs 03/02/17 0812 WBC 9.10 HB 12.9 HCT 39.1 PLT 196 Lab Results Component Value Date ABO O 03/02/2017 ABO O 03/02/2017 RH Positive 03/02/2017 RH Positive 03/02/2017 ABSCREEN Negative 03/02/2017 HIV non-reactive 11/07/2016 RPR non-reactive 11/07/2016 RUBELLAAB immune 11/07/2016 HBSAG non-reactive 11/07/2016 Assessment and Plan: Catherine Meredith is a 22 y.o. PPD1 s/p of viable female infant. 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 Delivery uncomplicated, wit h EBL 250mL. Pt is currently hemodynamically stable, afebrile, doing well. # Post Issues: Overall doing well. -Rhogam Not indicated -MMR Not indicated - Routine care. # : consult/support as needed. Previous child with cleft pallet. # Contraception: undecided # Social Work/Case Management: Discharge planning not yet discussed with patient. NOT YET screened for depression. # Disposition: Anticipated Discharge Date: PPD# 1-2; Follow-up Clinic Date: [facility] Res at 6 weeks post- Present at Rounds Attending: Nick Resident: Knapp Associated attestation - Sunny Romero CNM - 03/03/2017 11:40 AM PDTCNM ATTENDING I saw and examined the patient with the OB team on morning rounds and I agree with the asse ssment and plan as outlined in the resident's note. DALE Lorenzo CNM Creative/Art Director Department of [facility] [phone] Marcie Atkinson MD - 03/02/2017 10:07 AM PDTOB INTRAPARTUM PROGRESS NOTE 1000 S: Feeling comfortable after epidural O: Ht 1.544 m (5' 0.8"), Wt 68 kg (150 lb), BP 126/71, Pulse 78, Temperature 36.7 C (98.1 F), RR 18, Last menstrual period 06/10/2016, SpO2 96%, BMI 28.53 kg/(m^2). SVE: deferred, last check /+1 @ 0930 per RN FHT:baseline 130, mod rosa m, + accels, early decels [place]:q2-4 min A/P: Catherine Meredith is a 22 y.o. at 37w6d admitted for SROM and SOOC. # Labor: Active labor. - reassess in 1 -2 hour or PRN - continue expectant management # FWB: Category 1 tracing, continue to monitor # Pain: Epidural # PNC: GBS neg, prophylaxis not indicated # Dispo: Continue to monitor on L&D Marcie Atkinson MD PGY-1, Obstetrics & Gynecology Pager [phone] documented in this encounter Plan of Treatment Not on filedocumented as of this encounter Procedures + +--------+ + + + | Procedure Name | Priori | Date/Time | Associated Diagnosis | Comments | | | ty | | | | + +--------+ + + + | VAGINAL DELIVERY | Routin | 03/03/2017 | | Results for this | | | e | 3:35 AM | | procedure are in the | | | | PDT | | results section. | + +--------+ + + + | CBC (HEMOGRAM) ONLY | Urgent | 03/02/2017 | | Results for this | | | | 8:12 AM | | procedure are in the | | | | PDT | | results section. | + +--------+ + + + | CONFIRMATORY ABO/RH | Routin | 03/02/2017 | | Results for this | | | e | 8:12 AM | | procedure are in the | | | | PDT | | results section. | + +--------+ + + + | RPR SERUM | Urgent | 03/02/2017 | | Results for this | | | | 8:12 AM | | procedure are in the | | | | PDT | | results section. | + +--------+ + + + | CBC ONLY | Urgent | 03/02/2017 | | Results for this | | | | 8:12 AM | | procedure are in the | | | | PDT | | results section. | + +--------+ + + + | ANTIBODY SCREEN | Urgent | 03/02/2017 | | Results for this | | | | 8:12 AM | | procedure are in the | | | | PDT | | results section. | + +--------+ + + + | TYPE AND SCREEN | Urgent | 03/02/2017 | | Results for this | | | | 8:12 AM | | procedure are in the | | | | PDT | | results section. | + +--------+ + + + | ABO & RH TYPE | Urgent | 03/02/2017 | | Results for this | | | | 8:12 AM | | procedure are in the | | | | PDT | | results section. | + +--------+ + + + | UA DIPSTICK 8 DIP | Routin | 03/02/2017 | | Results for this | | W/O MICRO | e | 7:48 AM | | procedure are in the | | (AUTOMATED) POC | | PDT | | results section. | + +--------+ + + + documented in this encounter Results VAGINAL DELIVERY (03/03/2017 3:35 AM PDT) + + + | Narrative | Performed At | + + + | Geri Lopez MD 03/03/2017 3:35 AM [facility] | | | Delivery Note Patient's Name: Catherine Meredith | | | : 1995 Resident: Marcie Atkinson R2, Rena Hearn | | | R4 Attending: Dr. Ireland Primary Diagnosis Intrauterine | | | at 37w6d, delivered Additional Diagnoses History of | | | PPROM at 36 weeks in prior History of child with | | | Hemophagocytic Lymphohistiocystosis Procedure Delivery method: | | | Vaginal, Spontaneous Delivery [250] Anesthesia: Epidural [3] | | | Membranes: 03/02/2017 5:15 AM Spontaneous [1] Clear [1] | | | Lacerations: None [1] No results found for: Negative Antibiotics: | | | None Placenta Appearance: Intact Cord: EBL: 250 | | | Infant Infant's Name: Konstantin Meredith Delivery | | | Date: 03/02/2017 Delivery Time: 11:42 AM weight: 2892g | | | APGARS @ 1 minute: 9 APGARS @ 5 minutes: 9 Cord Gases Sent: | | | No Labor Summary Catherine Meredith is a 22 y.o. | | | admitted at 37w6d for labor. She needing nothing for | | | induction/augmentation of labor. She received epidural for pain | | | control. FHTs were category 1 throughout the first stage. She | | | progressed along a normal labor curve and progressed to complete | | | dilation. She pushed for 13 minute to deliver a viable infant in LUIS FERNANDO | | | position. The head and shoulders delivered easily. The cord was | | | clamped and cut. 10 units of IM pitocin was given for active | | | management of the third stage. The placenta delivered with cord | | | traction and fundal massage. On inspection, her perineum was found | | | to be intact. Excellent hemostasis was achieved. Sponge, instrument, | | | and needle counts were correct. Patient was transferred to | | | post- unit in stable condition. Dr. Ireland was | | | present for the entire delivery and repair. Marcie Atkinson, | | | PGY-1, Obstetrics & Gynecology Pager [phone] | | + + + CONFIRMATORY ABO/RH (03/02/2017 8:12 AM PDT) + + + + + + | Component | Value | Ref Range | Performed | Pathologist | | | | | At | Signature | + + + + + + | ABO Group | O | | [facility] | | | | | | LABORATORY | | | | | | SERVICES, | | | | | | TRANSFUSION | | | | | | MEDICINE | | + + + + + + | Rh Type | Positive | | [facility] | | | | | | LABORATORY | | | | | | SERVICES, | | | | | | TRANSFUSION | | | | | | MEDICINE | | + + + + + + + + | Specimen | + + | Blood - Blood | | (substance) | + + + + + + + | Performing | Address | City/State/Zipcode | Phone Number | | Organization | | | | + + + + + | [facility] | [address] | [place] [address] | | | SERVICES, | [address] | | | | TRANSFUSION MEDICINE | | | | + + + + + CBC (HEMOGRAM) ONLY (03/02/2017 8:12 AM PDT) + +-------+ + + + | Component | Value | Ref Range | Performed | Pathologist | | | | | At | Signature | + +-------+ + + + | WHITE CELL | 9.10 | 3.50 - 10.80 | [facility] | | | COUNT | | K/cu mm | LABORATORY | | | | | | SERVICES, | | | | | | CORE | | + +-------+ + + + | RED CELL | 4.53 | 4.00 - 5.20 | [facility] | | | COUNT | | M/cu mm | LABORATORY | | | | | | SERVICES, | | | | | | CORE | | + +-------+ + + + | HEMOGLOBIN | 12.9 | 12.0 - 16.0 | [facility] | | | | | g/dL | LABORATORY | | | | | | SERVICES, | | | | | | CORE | | + +-------+ + + + | HEMATOCRIT | 39.1 | 36.0 - 46.0 % | [facility] | | | | | | LABORATORY | | | | | | SERVICES, | | | | | | CORE | | + +-------+ + + + | MCV | 86.3 | 80.0 - 96.0 fL | [facility] | | | | | | LABORATORY | | | | | | SERVICES, | | | | | | CORE | | + +-------+ + + + | MCHC | 33.0 | 33.0 - 35.5 | [facility] | | | | | g/dL | LABORATORY | | | | | | SERVICES, | | | | | | CORE | | + +-------+ + + + | RDW SD | 40.5 | 35.1 - 46.3 fL | [facility] | | | | | | LABORATORY | | | | | | SERVICES, | | | | | | CORE | | + +-------+ + + + | PLATELET | 196 | 150 - 400 K/cu | [facility] | | | COUNT | | mm | LABORATORY | | | | | | SERVICES, | | | | | | CORE | | + +-------+ + + + | MPV | 11.5 | 9.7 - 12.3 fL | [facility] | | | | | | LABORATORY | | | | | | SERVICES, | | | | | | CORE | | + +-------+ + + + | NRBC% | 0.0 | 0.0 - 0.3 % | [facility] | | | | | | LABORATORY | | | | | | SERVICES, | | | | | | CORE | | + +-------+ + + + | NRBC# | 0.00 | 0.00 - 0.02 | [facility] | | | | | K/cu mm | LABORATORY | | | | | | SERVICES, | | | | | | CORE | | + +-------+ + + + + + | Specimen | + + | Blood - Blood | | (substance) | + + + + + | Narrative | Performed At | + + + | Must be ordered if Coagulopathy Panel is ordered | [facility] | | | LABORATORY | | | SERVICES, CORE | + + + + + + + + | Performing | Address | City/State/Zipcode | Phone Number | | Organization | | | | + + + + + | [facility] | [address] | [place] [address] | | | SERVICES, [address] | [address] | | | + + + + + ANTIBODY SCREEN (03/02/2017 8:12 AM PDT) + + + + + + | Component | Value | Ref Range | Performed | Pathologist | | | | | At | Signature | + + + + + + | Antibody | Negative | | [facility] | | | Screen | | | LABORATORY | | | | | | SERVICES, | | | | | | TRANSFUSION | | | | | | MEDICINE | | + + + + + + + + | Specimen | + + | Blood - Blood | | (substance) | + + + + + + + | Performing | Address | City/State/Zipcode | Phone Number | | Organization | | | | + + + + + | [facility] | [address] | [place] [address] | | | SERVICES, | [address] | | | | TRANSFUSION MEDICINE | | | | + + + + + ABO & RH TYPE (03/02/2017 8:12 AM PDT) + + + + + + | Component | Value | Ref Range | Performed | Pathologist | | | | | At | Signature | + + + + + + | ABO Group | O | | [facility] | | | | | | LABORATORY | | | | | | SERVICES, | | | | | | TRANSFUSION | | | | | | MEDICINE | | + + + + + + | Rh Type | Positive | | [facility] | | | | | | LABORATORY | | | | | | SERVICES, | | | | | | TRANSFUSION | | | | | | MEDICINE | | + + + + + + + + | Specimen | + + | Blood - Blood | | (substance) | + + + + + + + | Performing | Address | City/State/Zipcode | Phone Number | | Organization | | | | + + + + + | [facility] | [address] | [place] [address] | | | SERVICES, | [address] | | | | TRANSFUSION MEDICINE | | | | + + + + + RPR SERUM (03/02/2017 8:12 AM PDT) + + + + + + | Component | Value | Ref Range | Performed | Pathologist | | | | | At | Signature | + + + + + + | RPR SRM | Non ReactiveComment: | Non Reactive | [facility] | | | QUAL | Rapid Plasma Reagin | | REG UNIV | | | | screening test is | | PTH - [facility] | | | | Non-Reactive. No further | | | | | | reflex testing is | | | | | | required.Performed by | | | | | | [address] | | | | | | [address] White, [facility],[place] | | | | | | [id number] | | | | | | [phone]. | | | | | | [facility]Hung MD, | | | | | | Lab. Director | | | | + + + + + + + + | Specimen | + + | Blood - Blood | | (substance) | + + + + + + + | Performing | Address | City/State/Zipcode | Phone Number | | Organization | | | | + + + + + | [facility] | [address] | [place], [place] | | | UNIV P[facility] | | [id number] | | + + + + + UA 8 DIP, POC (03/02/2017 7:48 AM PDT) + + + + + + [...] + + + + + + | KETONES (UA | Negative | Negative mg/dL | [facility] - | | | DIP), POC | | | [facility] | | | | | | [place], POINT | | | | | | OF CARE | | | | | | TESTS | | + + + + + + | PROTEIN (UA | Negative | Neg - Trace | [facility] - | | | DIP), POC | | mg/dL | [facility] | | | | | | [place], POINT | | | | | | OF CARE | | | | | | TESTS | | + + + + + + | BLOOD (UA | Negative | Negative | [facility] - | | | DIP), POC | | | [facility] | | | | | | [place], POINT | | | | | | OF CARE | | | | | | TESTS | | + + + + + + | PH (UA | 7.0 | 5.0 - 8.0 | [facility] - | | | DIP), POC | | | [facility] | | | | | | [place], POINT | | | | | | OF CARE | | | | | | TESTS | | + + + + + + | NITRITES | Negative | Negative | [facility] - | | | (UA DIP), | | | [facility] | | | POC | | | [place], POINT | | | | | | OF CARE | | | | | | TESTS | | + + + + + + | LEUKOCYTES | Negative | Negative | [facility] - | | | (UA DIP), | | | [facility] | | | POC | | | [place], POINT | | | | | | OF CARE | | | | | | TESTS | | + + + + + + | SPECIFIC | 1.020 | 1.005 - 1.030 | [facility] - | | | GRAVITY (UA | | | [facility] | | | DIP), POC | | | [place], POINT | | | | | | OF CARE | | | | | | TESTS | | + + + + + + | APPEARANCE | Clear | | [facility] - | | | (UA DIP), | | | [facility] | | | POC | | | [place] POINT | | | | | | OF CARE | | | | | | TESTS | | + + + + + + | COLOR (UA | Yellow | | [facility] - | | | DIP), POC | | | [facility] | | | | | | [facility] | | | | | | OF CARE | | | | | | TESTS | | + + + + + + + + | Specimen | + + | Urine | + + + + + + + | Performing | Address | City/State/Zipcode | Phone Number | | Organization | | | | + + + + + | [facility] | [address] | [place], [place] | | | [facility] | [facility] | [address] | | | TESTS | | | [...] | | | + +--------+ +--------+------+------+ | docusate sodium (COLACE) | Given | 03/04/20 | 100 mg | | | | capsule 100 mg 100 mg, oral, | | 17 9:26 | | | | | TWICE DAILY, First dose on Sun | | AM PDT | | | | | 03/02/17 at 1430, Until | | | | | | | Discontinued | | | | | | + +--------+ +--------+------+------+ +-------+ +--------+---+---+ | Given | 03/03/20 | 100 mg | | | | | 17 8:52 | | | | | | PM PDT | | | | +-------+ +--------+---+---+ | Given | 03/03/20 | 100 mg | | | | | 17 9:05 | | | | | | AM PDT | | | | +-------+ +--------+---+---+ +---+---+ | | | +---+---+ + +-------+ + +---+---+ | ferrous sulfate tablet 65 mg | Given | 03/04/20 | 65 mg | | | | elemental 65 mg elemental (325 | | 17 9:27 | elementa | | | | mg total salt), oral, DAILY, | | AM PDT | l | | | | First dose on 03/02/17 at | | | | | | | 1430, Until Discontinued | | | | | | + +-------+ + +---+---+ +-------+ + +---+---+ | Given | 03/03/20 | 65 mg | | | | | 17 9:06 | elementa | | | | | AM PDT | l | | | +-------+ + +---+---+ | Given | 03/02/20 | 65 mg | | | | | 17 4:49 | elementa | | | | | PM PDT | l | | | +-------+ + +---+---+ +---+---+ | | | +---+---+ + +-------+ +--------+---+---+ | ibuprofen (MOTRIN) tablet 600 | Given | 03/04/20 | 600 mg | | | | mg 600 mg, oral, EVERY 6 HOURS, | | 17 3:18 | | | | | First dose on 03/02/17 at | | PM PDT | | | | | 1430, Until Discontinued | | | | | | + +-------+ +--------+---+---+ +-------+ +--------+---+---+ | Given | 03/04/20 | 600 mg | | | | | 17 9:27 | | | | | | AM PDT | | | | +-------+ +--------+---+---+ | Given | 03/04/20 | 600 mg | | | | | 17 3:41 | | | | | | AM PDT | | | | +-------+ +--------+---+---+ +---+---+ | | | +---+---+ + +---------+ +-------+-------+---+ | lactated Ringers IV 125 mL/hr, | New Bag | 03/02/20 | 125 | 125 | | | intravenous, CONTINUOUS, | | 17 9:33 | mL/hr | mL/hr | | | Starting 03/02/17 at 0815, | | AM PDT | | | | | Until 03/02/17 at 1423 | | | | | | + +---------+ +-------+-------+---+ +---+---+ | | | +---+---+ + +-------+ + +---+ + | oxytocin (PITOCIN) injection 10 | Given | 03/02/20 | 10 Units | | Right | | Units 10 Units, intramuscular, | | 17 11:47 | | | Vastus | | NEEDED, 1 dose, Starting Sun | | AM PDT | | | Laterali | | 03/02/17 at 0732, Until Sun | | | | | s | | 03/02/17 at 1147, for active | | | | | | | management of third stage labor, | | | | | | | for routine control of vaginal | | | | | | | bleeding and uterine tone when an | | | | | | | IV is not present | | | | | | + +-------+ + +---+ + +---+---+ | | | +---+---+ + +-------+ + +---+---+ | vitamins (with | Given | 03/04/20 | 1 tablet | | | | calcium) iron-folic acid | | 17 9:27 | | | | | ( PLUS) 27 mg iron- 1 mg | | AM PDT | | | | | tablet 1 tablet 1 tablet, oral, | | | | | | | DAILY, First dose on 03/02/17 | | | | | | | at 1430, Until Discontinued | | | | | | + +-------+ + +---+---+ +-------+ + +---+---+ | Given | 03/03/20 | 1 tablet | | | | | 17 9:06 | | | | | | AM PDT | | | | +-------+ + +---+---+ | Given | 03/02/20 | 1 tablet | | | | | 17 4:49 | | | | | | PM PDT | | | | +-------+ + +---+---+ +---+---+ | | | +---+---+ documented in this encounter
--- OUTSIDE RECORDS SUMMARY | ~2020-04-04 | XMS | Encounter Summary ---
Demographics + + + | Address | [address] | | | [place] [address] | + + + | Home Phone | | + + + | Preferred Language | Unknown | + + + | Marital Status | Unmarried Domestic Partner | + + + | Confucianist Affiliation | NRP | + + + | Race | Unknown | + + + | Ethnic Group | or | + + + Author + + + | Author | [facility] | + + + | Organization | [facility] | + + + | Address | Unknown | + + + | Phone | Unavailable | + + + Support + + +---------+ + | Name | Relationship | Address | Phone | + + +---------+ + | Fatuma Patel | ECON | Unknown | | + + +---------+ + Care Team Providers + +------+ + | Care Hr Payroll Coordinator Name | Role | Phone | + +------+ + | No Pcp Per Patient | PCP | Unavailable | + +------+ + Reason for Visit + + + | Reason | Comments | + + + | care | | + + + Maternity Services (Routine) +--------+--------+ + + [...] | | | | | | | [address] | | | | | | | [address] | | | | | | | [address], [address] | | | | | | | floor | | | | | | | [place], [place] | | | | | | | [address] | | | | | | | Phone: | | | | | | | [phone] | | | | | | | Fax: | | | | | | | [phone] | +--------+--------+ + + + + Encounter Details +--------+ + + + + | Date | Type | Department | Care Team | Description | +--------+ + + + + | 02/25/ | [facility] | Nette Bell MD | care | | 2017 | | [facility] | [address] | | | | | [address] | | | | | [address] | [place], [place] | | | | | [address] | [address] | | | | | [place], [place] | [phone] | | | | | [address] | | | | | | [phone] | | | +--------+ + + + [...] + + + | Blood Pressure | 110/70 | 02/25/2017 10:29 AM | | | | | PDT [...] + + + + | Weight | 68.1 kg (150 lb 3.2 | 02/25/2017 10:29 AM | | | | oz) | PDT | | + + + + + | Height | 152.6 cm (5' 0.08") | 02/25/2017 10:29 AM | | | | | PDT | | + + + + + | Body Mass Index | 29.26 | 02/25/2017 10:29 AM | | | | | PDT | | + + + + + documented in this encounter Progress Notes Nette Bell MD - 02/25/2017 10:20 AM PDT Return OB Visit ID: Catherine Meredith is a 22 y.o. at 37w1d here for a return OB visit. Interval Hx: Reports normal movement. Denies contractions, vaginal bleeding, or loss of fluid. Den ies headache, visual changes, right upper quadrant pain. Son had bone marrow transplant recently. Still in ICU. Anxious to get to see him today. Reports nightly 3am cramping. Doing some standing with son in PICU. Not getting enough slee p. Mood understandbaly down. Feels supported by FOB and friend staying at [facility]. Seen by Alysha rizzo. Current Outpatient Prescriptions: vitamin +FE (VOL PLUS) 27 mg iron- 1 mg oral tab let, Take 1 tablet by mouth once daily., Disp: 60 tablet, Rfl: 3 Physical Exam BP 110/70 | Ht 1.526 m (5' 0.08") | Wt 68.1 kg (150 lb 3.2 oz) | LMP 06/10/2016 | BMI 29.26 kg/(m^2) Gen: NAD Abd: soft, nontender, gravid Fundal Height: see flowsheet FHT: see flowshee Ext: 2+ pulses, no edema BSUS: cephalic, FHT 135, subjectively normal fluid, active movement and breathing Urine dipstick shows: see flowsheet Assessment and Plan: Catherine Meredith is a 22 y.o. at 37w1d here for a return OB v isit with the following issues: Patient Active Problem List Diagnosis Date Noted Encounter for supervision of normal in third trimester 02/19/2017 Priority: 1 Overview Note: Transfer of Care from [facility] at 36 weeks (pt's older child admitted at [facility]) - FoB: [place] - Dating Criteria: [LMP=22wk US] - [ [...] 02/19/2017 (36w2d): BSUS cephalic, NIA 13 - [x] GBS at 35wks: negative - [x] sex: Girl - [ ] MOD: Expected vaginal. Planning private cord blood banking. - [ ] ToD: Expectant management - [ ] : - [ ] MOC: LARC options discussed 02/19. Considering nexplanon vs post-placental Mirena, re address next visit Assessment & Plan Note: Seen by Alysha Plata, will get help with bed, and check on next week Cephalic by ultrasound Reviewed resources, how to access L&D History of delivery 02/19/2017 Priority: 2 Overview Note: Reportedly with advanced cervical dilation to 3cm at 34 weeks Delivery at 36 weeks after PPROM, rapid labor Counseled by Jake PÉREZ 11/18/16 at 22w3d. Declined 17-OHP due to fear of needles; had laps e in care so did not use vaginal progesterone The patient was discussed with Dr. Ramirez who agrees with the above. Mukesh Bell MD Resident Physician, Obstetrics & Gynecology Alysha Garcia LCSW - 02/25/2017 10:20 AM Flynn Preston referred this patient to SW after meeting with her last wemodesto martinez and identifying SW needs. Catherine is currently living at the [facility] with h er friend, mother and son's father, while her 5 year old son is undergoing a bone marrow tra nsplant. Pt said his procedure was done on February 12 and he is in the NICU and "not doing all t hat well." Pt's affect was flat and she reported feeling extremely tired. When asked about h er mood in she answered "OK" but seemed to shake her head in a way that indicated that things were hard. Patient offered information about how to obtain a car seat and safe sleep bed at [facility]. (I referred her to the Safe Sleep Program) Pt encouraged to ana lilia l today and set up an appointment with [facility] since she is so close to delivery. I will follow up with Catherine at her next visit. I'd like to assess her mood and follow up about referrals. Alysha GEEW Martha Chand MA - 02/25/2017 10:20 AM PDTTwo patient identifiers obtained before urine collection. wilfredo Alexander was roomed and the following services completed: Vital Signs, Medication, Allergi es, Pain and Substance Use Urine Dipstick; Two patient identifiers obtained before urine collection. tab Social Worker d ocumented in this encounter Plan of Treatment Not on filedocumented as of this encounter Procedures + +--------+ + + + | Procedure Name | Priori | Date/Time | Associated Diagnosis | Comments | | | ty | | | | + +--------+ + + + | UA 4 DIP N/C, POC | Routin | 02/25/2017 | Encounter for | Results for this | | | e | 10:48 AM | supervision of other | procedure are in the | | | | PDT | normal in | results section. | | | | | third trimester | | + +--------+ + + + documented in this encounter Results UA 4 DIP N/C, POC (02/25/2017 10:48 AM PDT) + + + + + + | Component | Value | Ref Range | Performed | Pathologist | | | | | At | Signature | + + + + + + | APPEARANCE | Cloudy | | [facility] | | | (UA DIP), | | | [facility] | | | POC | | | [...] DIP), POC | | Trace mg/dL | [facility] | | | | | | [facility] [...] + + + + | LEUKOCYTES | Large (A) | Negative | [facility] | [...] [facility] | [address] | [place], [place] | | | [place] | [address] | [address] | | | TESTS | | | | + + + + + documented in this encounter Visit Diagnoses + + | Diagnosis | + + | Encounter for supervision of other normal in third trimester - Primary | + + documented in this encounter
--- OUTSIDE RECORDS SUMMARY | ~2020-04-04 | XMS | Encounter Summary ---
Demographics + + + | Address | [address] | | | [place] [address] | + + + | Home Phone | | + + + | Preferred Language | Unknown | + + + | Marital Status | Unmarried Domestic Partner | + + + | Episcopal Affiliation | NRP | + + + | Race | Unknown | + + + | Ethnic Group | or | + + + Author + + + | Author | [facility] | + + + | Organization | [facility] | + + + | Address | Unknown | + + + | Phone | Unavailable | + + + Support + + +---------+ + | Name | Relationship | Address | Phone | + + +---------+ + | Fatuma Patel | ECON | Unknown | | + + +---------+ + Care Team Providers + +------+ + | Care Wharf Operator Name | Role | Phone | + +------+ + | No Pcp Per Patient | PCP | Unavailable | + +------+ + Encounter Details +--------+ + + + + | Date | Type | Department | Care Team | Description | +--------+ + + + + | 03/02/ | Pharmacy | Outpatient Retail | | | | 2016 | Visit | Clinic Pharmacy | | | | | | [address] | | | | | | [address] [place], [place] | | | | | | [address] | | | | | | [phone] | | | +--------+ + + + [...] + + documented as of this encounter Plan of Treatment Not on filedocumented as of this encounter Visit Diagnoses Not on filedocumented in this encounter"
--- OUTSIDE RECORDS SUMMARY | ~2020-04-04 | XMS | Encounter Summary ---
Demographics + + + | Address | [address] | | | [place] [address] | + + + | Home Phone | | + + + | Preferred Language | Unknown | + + + | Marital Status | Unmarried Domestic Partner | + + + | Jain Affiliation | NRP | + + + | Race | Unknown | + + + | Ethnic Group | or | + + + Author + + + | Author | [facility] | + + + | Organization | [facility] | + + + | Address | Unknown | + + + | Phone | Unavailable | + + + Support + + +---------+ + | Name | Relationship | Address | Phone | + + +---------+ + | Fatuma Patel | ECON | Unknown | | + + +---------+ + Care Team Providers + +------+ + | Care Software Test Manager Name | Role | Phone | + +------+ + | No Pcp Per Patient | PCP | Unavailable | + +------+ + Encounter Details +--------+ + + + + | Date | Type | Department | Care Team | Description | +--------+ + + + + | 07/23/ | Pharmacy | Outpatient Retail | | | | 2016 | Visit | Clinic Pharmacy | | | | | | [address] | | | | | | [address] [place], [place] | | | | | | [address] | | | | | | [phone] | | | +--------+ + + + [...]
--- OUTSIDE RECORDS SUMMARY | ~2020-04-04 | XMS | Encounter Summary ---
Demographics + + + | Address | [address] | | | [place] [address] | + + + | Home Phone | | + + + | Preferred Language | Unknown | + + + | Marital Status | Unmarried Domestic Partner | + + + | Jew Affiliation | NRP | + + + | Race | Unknown | + + + | Ethnic Group | or | + + + Author + + + | Author | [facility] | + + + | Organization | [facility] | + + + | Address | Unknown | + + + | Phone | Unavailable | + + + Support + + +---------+ + | Name | Relationship | Address | Phone | + + +---------+ + | Fatuma Patel | ECON | Unknown | | + + +---------+ + Care Team Providers + +------+ + | Care Clinical Support Tech Name | Role | Phone | + +------+ + | No Pcp Per Patient | PCP | Unavailable | + +------+ + Encounter Details +--------+ + + + + | Date | Type | Department | Care Team | Description | +--------+ + + + + | 02/19/ | Pharmacy | Outpatient Retail | | | | 2016 | Visit | Clinic Pharmacy | | | | | | [address] | | | | | | [address] [place], [place] | | | | | | [address] | | | | | | [phone] | | | +--------+ + + + [...]
--- OUTSIDE RECORDS SUMMARY | ~2020-04-04 | XMS | Encounter Summary ---
Demographics + + + | Address | [address] | | | [place] [address] | + + + | Home Phone | | + + + | Preferred Language | Unknown | + + + | Marital Status | Unmarried Domestic Partner | + + + | Worship Affiliation | NRP | + + + | Race | Unknown | + + + | Ethnic Group | or | + + + Author + + + | Author | [facility] | + + + | Organization | [facility] | + + + | Address | Unknown | + + + | Phone | Unavailable | + + + Support + + +---------+ + | Name | Relationship | Address | Phone | + + +---------+ + | Fatuma Patel | ECON | Unknown | | + + +---------+ + Care Team Providers + +------+ + | Care Trailer Park Manager Name | Role | Phone | + +------+ + | No Pcp Per Patient | PCP | Unavailable | + +------+ + Encounter Details +--------+ + + + + | Date | Type | Department | Care Team | Description | +--------+ + + + + | 03/04/ | Pharmacy | Outpatient Retail | | | | 2016 | Visit | Clinic Pharmacy | | | | | | [address] | | | | | | [address] [place], [place] | | | | | | [address] | | | | | | [phone] | | | +--------+ + + + [...]
--- OUTSIDE RECORDS SUMMARY | ~2020-04-04 | XMS | Encounter Summary ---
Demographics + + + | Address | [address] | | | [place] [address] | + + + | Home Phone | | + + + | Preferred Language | Unknown | + + + | Marital Status | Unmarried Domestic Partner | + + + | Yarsani Affiliation | NRP | + + + | Race | Unknown | + + + | Ethnic Group | or | + + + Author + + + | Author | [facility] | + + + | Organization | [facility] | + + + | Address | Unknown | + + + | Phone | Unavailable | + + + Support + + +---------+ + | Name | Relationship | Address | Phone | + + +---------+ + | Fatuma Patel | ECON | Unknown | | + + +---------+ + Care Team Providers + +------+ + | Care Inspector Screen Printing Name | Role | Phone | + +------+ + | No Pcp Per Patient | PCP | Unavailable | + +------+ + Encounter Details +--------+ + + + + | Date | Type | Department | Care Team | Description | +--------+ + + + + | 02/22/ | Document-Sc | UNKNOWN DEPARTMENT | Unknown . | | | 2017 | anned | [address] | | | | | | [address] | | | | | | [place], [place] | | | | | | [address] | | | +--------+ + + + [...]
--- OUTSIDE RECORDS SUMMARY | ~2020-04-04 | XMS | Encounter Summary ---
Demographics + + + | Address | [address] | | | [place] [address] | + + + | Home Phone | | + + + | Preferred Language | Unknown | + + + | Marital Status | Unmarried Domestic Partner | + + + | Muslim Affiliation | NRP | + + + | Race | Unknown | + + + | Ethnic Group | or | + + + Author + + + | Author | [facility] | + + + | Organization | [facility] | + + + | Address | Unknown | + + + | Phone | Unavailable | + + + Support + + +---------+ + | Name | Relationship | Address | Phone | + + +---------+ + | Fatuma Patel | ECON | Unknown | | + + +---------+ + Care Team Providers + +------+ + | Care Musculoskeletal Physician Name | Role | Phone | + +------+ + | No Pcp Per Patient | PCP | Unavailable | + +------+ + Reason for Visit + + + | Reason | Comments | + + + | care | | + + + Encounter Details +--------+ + + + + | Date | Type | Department | Care Team | Description | +--------+ + + + + | [facility]/19/ | [facility] | Markkeri Salvador, | care | | 2017 | Initial | [facility] [address] | Christiano Hinkle MD [address] | | | | | [facility] [address] | [facility] | | | | | [address] floor | [address] [place], [place] | | | | | [place], [place] | [address] | | | | | [address] | [phone] | | | | | [phone] | | | +--------+ + + + [...] documented as of this encounter Progress Notes Christiano Dubois MD - 02/19/2017 4:00 PM PDTI have seen and examined Ms Meredith and agree with Dr Preston's note and assessment. I was present for all pertinent portions of the counseling and examination as documented. 22 yo at 36w2d here for routine PNC. ANI - h/o PTB at 36wks after PPROM, son with C [facility], and [facility] from [place] and staying in town. - Routine PNC UTD - Declined 17OHP after MFM consult at [facility], and had normal anatomy US - Reviewed signs of PTL/PPROM for which to be evaluated Christiano Hall MD Department of Obstetrics & Gynecology Display Progress Note in [place]: No documented in this encounter Plan of Treatment Not on filedocumented as of this encounter Visit Diagnoses + + | Diagnosis | + + | Encounter for supervision of other normal in third trimester - Primary | + + | History of delivery | + + | Family history of cleft palate with cleft lip Family history of congenital anomalies | + + documented in this encounter"
--- OUTSIDE RECORDS SUMMARY | ~2020-04-04 | XMS | Encounter Summary ---
Demographics + + + | Address | [address] | | | [place] [address] | + + + | Home Phone | | + + + | Preferred Language | Unknown | + + + | Marital Status | Unmarried Domestic Partner | + + + | Quaker Affiliation | NRP | + + + | Race | Unknown | + + + | Ethnic Group | or | + + + Author + + + | Author | [facility] [employer] [facility] | + + + | Organization | [facility] [employer] [facility] | + + + | Address | Unknown | + + + | Phone | Unavailable | + + + Support + + +---------+ + | Name | Relationship | Address | Phone | + + +---------+ + | Fatuma Patel | ECON | Unknown | | + + +---------+ + Care Team Providers + +------+ + | Care Construction Materials Tester Name | Role | Phone | + [...] +--------+--------+ + + + + Encounter Details +--------+---------+ + + + | Date | Type | Department | Care Team | Description | +--------+---------+ + + + | 03/05/ | Office | [facility] | Socorro Melendez, | nipple | | 2017 | Visit | [facility] [address] | [address] | cracking (Primary | | | | [address] | [address] | Dx) | | | | [address], [address] floor | [place], [place] | | | | | [place], [place] | [address] | | | | | [address] | [phone] | | | | | [phone] | | | +--------+---------+ + + + [...] + + documented as of this encounter Patient Instructions Patient Instructions Socorro Melendez CNM - 03/05/2017 3:15 PM PDTIn the first several wee ks of , provide your baby with unrestricted access to your breasts by practicin g frequent and prolonged skin to skin care. Feed infant on demand at least 8-12 times in 24 hours including at night. Do not restrict length of feeds. Allow infant to remain at breas t as long as they are actively sucking and swallowing. Use breast compressions to maintain active drinking and improve feeding efficiency. Offer both breasts at each feed. Continue to monitor diaper output, which should be at least 3-4 large stools per day after day 5 of life. Call pediatric provider with infant-related concerns. If latch is painful then stop baby and try again. If you can't get the pain to stop then t ry pumping and bottle feeding with your milk instead. For your nipples: Recommend position al adjustments to optimize latch, saline compresses/soaks, lanolin and breastmilk to nipples along with good hand hygiene to decrease infection risk. Saline Soaks for Nipple Healing Mix 1/2 teaspoon of salt in one cup (8 oz) of warm water. Make a fresh supply each day to a void bacterial contamination. After , soak nipple(s) in a small bowl of warm saline solution for a minute or so. Alternatively, put the saline solution into a squeeze bottle and squirt it on gently, o r place a clean cloth or gauze soaked with saline directly onto your nipples. Avoid prolonged soaking (more than 5-10 minutes), as this can promote cracking and delay he aling. Pat dry gently with a clean cloth. To promote moist wound healing hydrogel dressing. This helps to maintain the internal moist ure of the skin. BREAST COMPRESSION The purpose of breast compression is to continue the flow of milk to the baby when the baby is not actively drinking. When baby is actively drinking you will see pauses as milk fills the baby's mouth followed by audible swallowing. If baby is no longer drinking on his own, mother may use compressions to turn sucks or nibbling into drinks , and keep baby recei ving milk. Compressions increase milk flow to the baby and will lead to active drinking. The technique may be useful for: * Poor weight gain in the baby * Colic in the breastfed baby * Frequent feedings and/or long feedings * Sore nipples in the mother * Recurrent blocked ducts and/or mastitis * Encouraging the baby who falls asleep quickly to continue drinking not just sucking * A lazy baby, or baby who seems to want to just pacify . These babies will ofte n be more active with increased flow. How to do it While nursing, encircle the breast by placing your thumb on one side of the breast, your ot her fingers on the other, close to the chest wall. Apply firm (not painful) pressure between your thumb and fingers, hold the pressure as you watch for the baby s drinking. You shoul d see and hear an increase in swallowing during the compression. Maintain the compression w hile your baby actively drinks, when the baby pauses release the compression. The compressi on will increase the internal pressure of the whole breast. Do not roll your fingers along t he breast toward the baby, just squeeze and hold. Continue on the first side until the baby does not drink even with the compression, then offer the other side. Breast compression is not necessary if everything is going well, but it is an effective way to increase milk flow to the baby. You can also use compressions during pumping to increas e flow and empty the breast more completely. Further information and videos: www.breastfeedinginc.ca Revised from: Breast Compression, October revised (under other names) by Ad weeks MD, FRCPC, 1994-2004by Ad Cameron MD, FRCPC, IBCLC and Radha Sutherland, IBCLC, 2007 , 2008 documented in this encounter Progress Notes Socorro Melendez CNM - 03/05/2017 3:15 PM PDTFormatting of this note might be different fr om the original. [facility] Services - [facility] New Visit This consultation reflects care of dyad and contains pertinent info rmation from mother and charts, when applicable. Mother- Catherine Meredith [id number] 22 y.o. Infant- Catherine Renee [id number] age 3 days Chief Concern/Reason for visit: nipple pain. Mother reports is painful. Trying to feed every 3 hours. The pain is in the nipples. Starting to feel the breasts are changing. When asked what are your hopes for br eastfeeding - "I never thought of that. I wanted to give it a try.". Staying at [facility] while son is hospitalized. Used hand expression today whi le in the hospital with her son, due to engorgement. Spending most of every day at son's bed side. Maternal Review of Systems General: negative Breasts/nipples: positive for sore Gastrointestinal: negative Genitourinary: negative Musculoskeletal: negative Emotional: positive for flat affect today in visit Current feeding Frequency: 8 times in 24 hours, for 10-15 minutes each feed Pumping: Yes, 1 times per 24 hours, yield 2 ounces from left side only Infant supplementation: None Nipple Shield Use: None Infant elimination in last 24 hours Stool: 2 Stool characteristics: meconium Infant Growth Current Weight: 2690 grams % Weight change since : -7% Rate of gain: N/A Current intake requirement is 15-30 mL per feeding, based on DOL Maternal History Previous breast surgery: None Previous : "for maybe 2 months" Patient Active Problem List Diagnosis Encounter for supervision of normal in third trimester History of delivery OB History Para Term AB SAB TAB Ectopic Multiple Living 2 2 1 1 0 2 # Outcome Date GA Lbr Jeremiah/2nd Weight Sex Delivery Anes PTL Lv 2 Term 03/02/17 37w6d 2.892 kg (6 lb 6 oz) F Vag-Spont epidural. Y 1 04/05/11 36w0d 1.814 kg (4 lb) M Vag-Spont Y Y Obstetric Comments Menarche: 10. LMP: 06/10/2016. Periods regular, q 28 days, lasting 5 days. Last pap: 7, normal. Hx abnormal Pap smears: no. Hx STD's: No. Current Outpatient Prescriptions on File Prior to Visit Medication Sig Dispense Refill docusate sodium 100 mg oral capsule Take 1 capsule by mouth twice daily as needed. 80 c apsule 2 ibuprofen 600 mg oral tablet Take 1 tablet by mouth every six hours as needed. Take wit h food; do not exceed 5 tablets in 24 hours 80 tablet 1 vitamin +FE (VOL PLUS) 27 mg iron- 1 mg oral tablet Take 1 tablet by mouth onc e daily. 60 tablet 3 No current facility-administered medications on file prior to visit. Past Surgical History Procedure Laterality Date Tonsillectomy 1998 Social History Social History Marital status: Unmarried Domestic Partner Spouse name: Arya Renee Number of children: N/A Years of education: N/A Occupational History unemployed Social History Main Topics Smoking status: Never Smoker Smokeless tobacco: Never Used Alcohol use No Drug use: No Sexual activity: Not Currently Partners: Male Other Topics Concern Service No Blood Transfusions No Caffeine Concern No Occupational Exposure No Hobby Hazards No Sleep Concern No Stress Concern Yes Son who is currently at [facility] having Bone Marrow Transplant. Weight Concern No Special Diet No Back Care No Exercise Yes Bike Helmet No Seat Belt Yes Self-Exams No Social History Narrative LW: Live with boyfriend and son in a home in [facility] ([place] Cats in home: No. Cat litter box? N/A. Working smoke alarms: Yes. Guns in the house: NO. Quaker preference: Caltholic. Agreeable to blood transfusion: Yes. Racial ethnicity: /. Primary Language: Latvian. Years of Education. Degree in GED. Pt currently unemployed, and her /partner works as cook. Domestic Violence: No. History Information for the patient's : Catherine Renee [[id number]] Delivery Method: Vaginal, Spontaneous Delivery [250] Date: 03/02/2017 Time: 11:42 AM Weight: 2.892 kg (6 lb 6 oz) Gestational age: 37 6/7 APGARS 1 min: 9 APGARS 5 min: 9 BRALHT50 min: Patient Active Problem List Diagnosis Normal (single liveborn) Maternal Physical Exam Breasts, nipples and areola: -Right: non-tender and firm nipple is [place] and trauma: 2- superficial tissue breakdown -Left: non-tender and firm nipple is [place] and trauma: 2- superficial tissue breakdown -General Morphology: Type 1: Round breasts, normal lower medial and lateral quadrants. an d symmetrical Feeding Observations Maternal Position: upright and cross-cradle Latch/attachment: eager, deep and not painful, mother states it is usually painful Suck: continuous and nutritive Swallow: regular, audible and increase with compression Feed ended by: baby and infant falls asleep at breast. Baby appears satisfied Mother's nipples after feed: are not compressed. Mom reports this feed was better than typical. Narrative: Eager mother-led latch, many audible swallows, increase with compression, posit ion adjusted to deepen attachment and optimize latch. Transferred 24 cc. Transfer volume 24 cc over 8 minutes. Left side only. Total: 24 cc. Maternal Assessment/Plan 1. Lactating mother of 2nd child. Her milk is coming in today with adequate supply based on infant output pumped volume. Encouraged to provide unrestricted access to the [address] by practicing frequent and prolonged skin to skin care during the first few weeks. Feed i nfant on demand at least 8-12 times in 24 hours including at night. Do not restrict length of feeds. Allow to remain at breast as long as they are actively sucking and swallow ing. Use breast compressions to maintain active drinking and improve feeding efficiency. O ffer both breasts at each feed. Continue to monitor diapers output which should be 3 -4 large stools per day after day 5 of life. Call pediatric provider with infant-related co ncerns. 2. Nipple pain and trauma. Recommend positional adjustments to optimize latch, saline com presses/soaks, lanolin and breastmilk to nipples along with good hand hygiene to decrease in fection risk. Position adjusted to produce deeper more comfortable latch. Encouraged to vary feeding position throughout the day. Use breast compressions to improve feeding efficiency until symptoms improve. May alternate pumping and direct nursing as desired. Call with any s igns of infection or if minimal improvement within 48-72 hours. 3. Currently identified maternal risk factors for unintended weaning and/or low milk suppl y including: previous failure difficult medical situation with son Assessment/Plan 1. 3 day old born at term with continued, normal weight loss. Currently partially with supplementation with pumped mother's own milk. Encouraged to provide inf ant unrestricted access to the breast by practicing frequent and prolonged skin to skin care during the first few weeks. Feed on demand at least 8-12 times in 24 hours including at night. Do not restrict length of feeds. Allow to remain at breast as long as th ey are actively sucking and swallowing. Use breast compressions to maintain active drinking and improve feeding efficiency. Offer both breasts at each feed. Continue to monitor infa nt diapers output which should be 3-4 large stools per day after day 5 of life. Call pediat emely provider with -related concerns. Provided anticipatory guidance about supply and demand effects on milk supply avoidance of milk stasis management of engorgement variations in infant feeding patterns including growt h spurts normal elimination patterns breast mlk storage. Return to clinic as needed. Socorro Melendez CNM documented in this e ncounter Plan of Treatment Not on filedocumented as of this encounter Visit Diagnoses + + | Diagnosis | + + | nipple cracking - Primary Cracked nipple, condition or | | complication | + + documented in this encounter
--- OUTSIDE RECORDS SUMMARY | ~2020-04-04 | XMS | Encounter Summary ---
Demographics + + + | Address | [address] | | | [place] [address] | + + + | Home Phone | | + + + | Preferred Language | Unknown | + + + | Marital Status | Unmarried Domestic Partner | + + + | Scientologist Affiliation | NRP | + + + | Race | Unknown | + + + | Ethnic Group | or | + + + Author + + + | Author | [facility] | + + + | Organization | [facility] | + + + | Address | Unknown | + + + | Phone | Unavailable | + + + Support + + +---------+ + | Name | Relationship | Address | Phone | + + +---------+ + | Fatuma Patel | ECON | Unknown | | + + +---------+ + Care Team Providers + +------+ + | Care Mattress Specialist Name | Role | Phone | + +------+ + | No Pcp Per Patient | PCP | Unavailable | + +------+ + Encounter Details +--------+ + + + + | Date | Type | Department | Care Team | Description | +--------+ + + + + | 07/09/ | Pharmacy | Outpatient Retail | | | | 2016 | Visit | [facility] | | | | | | [address] | | | | | | [address] [place], [place] | | | | | | [address] | | | | | | [phone] | | | +--------+ + + + [...]
--- OUTSIDE RECORDS SUMMARY | ~2020-04-04 | XMS | Encounter Summary ---
Demographics + + + | Address | [address] | | | [place] [address] | + + + | Home Phone | | + + + | Preferred Language | Unknown | + + + | Marital Status | Unmarried Domestic Partner | + + + | Islam Affiliation | NRP | + + + | Race | Unknown | + + + | Ethnic Group | or | + + + Author + + + | Author | [facility] | + + + | Organization | [facility] [employer] [facility] | + + + | Address | Unknown | + + + | Phone | Unavailable | + + + Support + + +---------+ + | Name | Relationship | Address | Phone | + + +---------+ + | Fatuma Patel | ECON | Unknown | | + + +---------+ + Care Team Providers + +------+ + | Care Nurse Clinician Name | Role | Phone | + +------+ + | No Pcp Per Patient | PCP | Unavailable | + +------+ + Reason for Visit + + + | Reason | Comments | + + + | Question | [facility] | + + + | Lab findings, | [facility] | | teaching, guidance, | | | and counseling | | + + + Encounter Details +--------+ + + + + | Date | Type | Department | Care Team | Description | +--------+ + + + + | 02/26/ | Telephone | [facility] | Nette Bell MD | Question ([facility] | | 2017 | | [facility] | [address] | [place]); Lab | | | | [address] [address] | findings, teaching, | | | | [address] | [place], [place] | guidance, and | | | | [place], [facility] floor | [address] | counseling ([facility]esh | | | | [place], [place] | [phone] | [place]) | | | | [address] | | | | | | [phone] | | | +--------+ + + + [...] Not on filedocumented as of this encounter Results CMV IGG AND IGM ABS, SERUM (02/28/2017 4:35 PM PDT) + + + + + + | Component | Value | Ref Range | Performed | Pathologist | | | | | At | Signature | + + + + + + | CMV IGG AB | 2.20Comment: | U/mL | [facility] | | | | INTERPRETIVE | | REG UNIV | | | | INFORMATION: | | PTH - INTFC | | | | Cytomegalovirus | | | | | | Antibody, IgG 0.59 | | | | | | U/mL or less......... | | | | | | Not Detected 0.6 - | | | | | | 0.69 U/mL........... | | | | | | Indeterminate-Repeat | | | | | | testing in | | | | | | | | | | | | 10-14 days may be | | | | | | helpful. 0.70 U/mL or | | | | | | greater...... Detected | | | | | | In immunocompromised | | | | | | patients, CMV serology | | | | | | (IgG or IgM antibody | | | | | | titers) may not be | | | | | | reliable and may be | | | | | | misleading in the | | | | | | diagnosis of acute or | | | | | | reactivation CMV | | | | | | disease. The preferred | | | | | | method for diagnosis is | | | | | | culture of virus and/or | | | | | | demonstration of viral | | | | | | antigen in peripheral | | | | | | white cells (buffy | | | | | | coat), bronchoalveolar | | | | | | lavage (BAL) cells, or | | | | | | tissue biopsies. This | | | | | | test should not be used | | | | | | for blood donor | | | | | | screening, associated | | | | | | re-entry protocols, or | | | | | | for screening Human | | | | | | Cell, Tissues and | | | | | | Cellular and | | | | | | Tissue-Based Products | | | | | | (HCT/P). The best | | | | | | evidence for current | | | | | | infection is a | | | | | | significant change on | | | | | | two appropriately timed | | | | | | specimens, where both | | | | | | tests are done in the | | | | | | same laboratory at the | | | | | | same time. | | | | + + + + + + | CMV IGM AB | <8.0Comment: | <=29.9 AU/mL | [facility] | | | | INTERPRETIVE | | REG UNIV | | | | INFORMATION: | | PTH - INTFC | | | | Cytomegalovirus | | | | | | Antibody, IgM 29.9 | | | | | | AU/mL or Less ....... | | | | | | Not Detected 30.0-34.9 | | | | | | AU/mL........... | | | | | | Indeterminate-Repeat | | | | | | testing | | | | | | | | | | | | in 10-14 days may be | | | | | | helpful. 35.0 AU/mL or | | | | | | Greater .... | | | | | | Detected-IgM antibody to | | | | | | CMV | | | | | | | | | | | | detected which may | | | | | | indicate a | | | | | | | | | | | | current or recent | | | | | | infection. | | | | | | | | | | | | However, low | | | | | | levels of IgM | | | | | | | | | | | | antibodies may | | | | | | occasionally | | | | | | | | | | | | persist for more | | | | | | than 12 | | | | | | | | | | | | months | | | | | | post-infection. CMV | | | | | | serology is not useful | | | | | | for the evaluation of | | | | | | active or reactivated | | | | | | infection in | | | | | | immunocompromised | | | | | | patients. Molecular | | | | | | diagnostic tests (i.e. | | | | | | PCR)are preferred in | | | | | | these cases. This test | | | | | | should not be used for | | | | | | blood donor screening, | | | | | | associated re-entry | | | | | | protocols, or for | | | | | | screening Human Cell, | | | | | | Tissues and Cellular and | | | | | | Tissue-Based Products | | | | | | (HCT/P).Performed by | | | | | | [employer],[address] | | | | | | [address], [facility] [place] | | | | | | [address] | | | | | | [phone].[employer] | | | | | | [facility], Hung Taveras MD, | | | | | | [...] [facility] | [address] | [place], [place] | | | UNIV PTH - INT | | [phone] | | + + + + + documented in this encounter Visit Diagnoses + + | Diagnosis | + + | care, third trimester - Primary | + + documented in this encounter"
--- OUTSIDE RECORDS SUMMARY | ~2020-04-04 | XMS | Encounter Summary ---
Demographics + + + | Address | [address] | | | [place] [address] | + + + | Home Phone | | + + + | Preferred Language | Unknown | + + + | Marital Status | Unmarried Domestic Partner | + + + | Roman Catholic Affiliation | NRP | + + + | Race | Unknown | + + + | Ethnic Group | or | + + + Author + + + | Author | [facility] | + + + | Organization | [facility] | + + + | Address | Unknown | + + + | Phone | Unavailable | + + + Support + + +---------+ + | Name | Relationship | Address | Phone | + + +---------+ + | Fatuma Patel | ECON | Unknown | | + + +---------+ + Care Team Providers + +------+ + | Care Parts Specialist Name | Role | Phone | + +------+ + | No Pcp Per Patient | PCP | Unavailable | + +------+ + Reason for Visit + + + | Reason | Comments | + + + | | | + + + Maternity Services [...] | | | | | | | [address] | | | | | | | [place] | | | | | | | [place], [address] | | | | | | | floor | | | | | | | [place], [place] | | | | | | | [address] | | | | | | | Phone: | | | | | | | [phone] | | | | | | | Fax: | | | | | | | [phone] | +--------+--------+ + + + + Encounter Details +--------+ + + + + | Date | Type | Department | Care Team | Description | +--------+ + + + + | [facility]/18/ | [facility] Initial | [facility] [address] | | | | | | [address] | | | | | | [address] | | | | | | [address] floor | | | | | | [place], [place] | | | | | | [address] | | | | | | [phone] | | | +--------+ + + + [...] + + + | Blood Pressure | - | - | | + [...] + + + + | Weight | 67.9 kg (149 lb 9.6 | 02/19/2017 7:59 AM | | | | oz) | PDT | | + + + + + | Height | 152.6 cm (5' 0.08") | 02/19/2017 8:01 AM | | | | | PDT | | + + + + + | Body Mass Index | 29.14 | 02/19/2017 7:59 AM | | | | | PDT | | + + + + + documented in this encounter Progress Notes Safia Vuong RN - 02/18/2017 2:00 PM PDT Initial Clinic Note Patient here for Nurse OB Intake. Patient is here for OB Nurse Intake session. She is 22 y.o., T0 P1 SAB0 TAB0 L1 Mult0 Ect0 , currently at 36w2d weeks gestation and here to start care with the [facility] Res ident Division. Provided patient with intake folder and reviewed its contents. Patient compl eted the OB Intake Patient Information Form and the OB Intake Questionnaire. All information has been entered into [employer] and forms/medical records have been placed in file folder in RN pod This patient is a late SADAF from [place], [place] due to the fact that her son is a patient here at [facility] with HLH (Hemophagocytic Lymphohistiocytosis) and in need of a Bone Marrow Tra nsplant. Patient indicates that she would like this baby's umbilical cord stem cell at time of delivery. According to patient she has the kit for this express purpose. Son was born wit h cleft lip. LMP: Patient's last menstrual period was 06/10/2016 (exact date). HALEY: Estimated Date of Delivery: 03/17/17 OB History Para Term AB TAB SAB Ectopic Multiple Living 2 1 1 1 # Outc Date GA Lbr Jeremiah/2nd Wgt Sex Del Anes PTL Lv 1 03/2011 36w0d 1.814 kg (4 lb) M Vag-Spont Y Y 2 Current Obstetric Comments Menarche: 10. LMP: 06/10/2016. Periods regular, q 28 days, lasting 5 days. Last pap: 11/08/19 17, normal. Hx abnormal Pap smears: no. Hx STD's: No. Past Medical History: Diagnosis Date History of chicken pox Social History Social History Marital status: Unmarried [...] Concern Yes Son who is currently at [facility] having Bone Marrow Transplant. Weight Concern No Special Diet No Back Care No Exercise Yes Bike Helmet No Seat Belt Yes Self-Exams No Social History Narrative LW: Live with boyfriend and son in a home in [facility] ([place]). Cats in home: No. Cat litter box? N/A. Working smoke alarms: Yes. Guns in the house: NO. Roman Catholic preference: Caltholic. Agreeable to blood transfusion: Yes. Racial ethnicity: /. Primary Language: Syriac. Years of Education. Degree in GED. Pt currently unemployed, and her /partner works as cook. Domestic Violence: No. Past Surgical History Procedure Laterality Date Tonsillectomy 1998 Family History Problem Relation Other Child Hemophagocytic Lymphohistiocystosis (HLH) currently here at [facility] receving a Bone Marrow T ransplant Hypertension Mother Diabetes Maternal Grandmother No Known Allergies Pertinent history/current issues: 1) No current issues noted from patient. Discussed today: 1) Handouts: Reviewed handouts on morning sickness, exercise, traveling during , childbirth education, car safety for mom and baby, , lactati on, and [facility]'s New Mom's Group. Also reviewed routine labs, medications safe to amie e in , how and when to contact the gas pumping station operator provider, women's health research, and ontinuity of care with the Generalists. 2) Healthy Eating in : RN reviewed My Plate in detail, nutrition during including fish/seafood handout, healthy snacking ideas, and food safety. BMI with range of healthy weight gain given to patient and reviewed. Referral to orthodontist assistant offered. Gestational diabetes screening: Positive answers: No HgbA1C ordered no 3) Genetic Testing Options: RN didn't review genetic screening options as now outside of da te range. 4) Vitamin/Folic Acid: Discussed importance of folic acid during and rec ommendation of taking a vitamin daily. 5) Litter Box: Instructed pt to avoid litter box if applicable. 6) Contact Information: Reviewed how and when to contact clinic RN or on-call provider. Pt given contact numbers. EPDS Score: 4 Orders Placed This Encounter LAB RESULTS PANEL (FOR EXTERNAL RESULTS ONLY) CBC ONLY vitamins (with calcium) iron-folic acid 27 mg iron- 1 mg oral tablet Questions answered. Pt instructed to contact us with any further questions or concerns michelle r to New OB appt with provider. Food [employer] access information given. Orders placed for labs and urine culture already done at previous provider office. External results entered into Talkbits. Pt will follow up for New OB appt 02/19/17 at 4:[address] Preston, or sooner as needed. P t agreeable with this plan and denies further questions at this time. Safia Vuong RN documented in this enc ounter Plan of Treatment Not on filedocumented as of this encounter Procedures + +--------+ + + + | Procedure Name | Priori | Date/Time | Associated Diagnosis | Comments | | | ty | | | | + +--------+ + + + | CBC ONLY | Routin | 01/06/2017 | | Results for this | | | e | | | procedure are in the | | | | | | results section. | + +--------+ + + + | LAB RESULTS | Routin | 11/07/2016 | | Results for this | | PANEL (FOR EXTERNAL | e | | | procedure are in the | | RESULTS ONLY) | | | | results section. | + +--------+ + + + documented in this encounter Results CBC ONLY (01/06/2017) + +-------+ + + + | Component | Value | Ref Range | Performed | Pathologist | | | | | At | Signature | + +-------+ + + + | WHITE CELL | 8.4 | K/cu mm | NON [facility] | | | COUNT | | | LAB | | + +-------+ + + + | RED CELL | 3.98 | M/cu mm | NON [facility] | | | COUNT | | | LAB | | + +-------+ + + + | HEMOGLOBIN | 12.2 | 12.1998 - 15 | NON [facility] | | | | | g/dL | LAB | | + +-------+ + + + | HEMATOCRIT | 36.4 | % | NON [facility] | | | | | | LAB | | + +-------+ + + + | MCV | 91.6 | fL | NON [facility] | | | | | | LAB | | + +-------+ + + + | MCH | 31 | pg | NON [facility] | | | | | | LAB | | + +-------+ + + + | MCHC | 34 | g/dL | NON [facility] | | | | | | LAB | | + +-------+ + + + | PLATELET | 199 | K/cu mm | NON [facility] | | | COUNT | | | LAB | | + +-------+ + + + | NEUTROPHIL | 68.2 | % | NON [facility] | | | % | | | LAB | | + +-------+ + + + | LYMPHOCYTE | 24.2 | % | NON [facility] | | | % | | | LAB | | + +-------+ + + + | MONOCYTE % | 6.4 | % | NON [facility] | | | | | | LAB | | + +-------+ + + + | EOS % | 0.8 | % | NON [facility] | | | | | | LAB | | + +-------+ + + + | BASO % | 0.4 | % | NON [facility] | | | | | | LAB | | + +-------+ + + + | RDW | 13.5 | % | NON [facility] | | | | | | LAB | | + +-------+ + + + + + | Specimen | + + | Blood - Blood | | (substance) | + + + +---------+ + + | Performing | Address | City/State/Zipcode | Phone Number | | Organization | | | | + +---------+ + + | NON [facility] | | | | + +---------+ + + LAB RESULTS PANEL (FOR EXTERNAL RESULTS ONLY) (11/07/2016) + + + + + + | Component | Value | Ref Range | Performed | Pathologist | | | | | At | Signature | + + + + + + | ABO GROUP | O | | NON [facility] | | | | | | LAB | | + + + + + + | RH TYPE | positive | | NON [facility] | | | | | | LAB | | + + + + + + | ANTIBODY | negative | | NON [facility] | | | SCREEN | | | LAB | | + + + + + + | HEMATOCRIT | 33.8 | % | NON [facility] | | | | | | LAB | | + + + + + + | HEMOGLOBIN | 11.3 (A) | 12.1998 - 15 | NON [facility] | | | | | g/dL | LAB | | + + + + + + | PLATELET | 211 | K/cu mm | NON [facility] | | | COUNT | | | LAB | | + + + + + + | RPR SRM | non-reactive | | NON [facility] | | | QUAL | | | LAB | | + + + + + + | CULT, URINE | negative | | NON [facility] | | | SCREEN | | | LAB | | + + + + + + | HEPATITIS B | non-reactive | | NON [facility] | | | SURFACE | | | LAB | | | AG, SERUM | | | | | + + + + + + | HIV-1/HIV2 | non-reactive | | NON [facility] | | | AB SCREEN | | | LAB | | + + + + + + | DISPATCH OFFICER | normalComment: bacteria | | NON [facility] | | | CYTOLOGY | noted | | LAB | | + + + + + + | 1 HOUR | 104 | mg/dL | NON [facility] | | | GLUCOSE | | | LAB | | + + + + + + | RUBELLA IGG | immune | IU/mL | NON [facility] | | | AB | | | LAB | | + + + + + + + + | Specimen | + + | Blood - Blood | | (substance) | + + + +---------+ + + | Performing | Address | City/State/Zipcode | Phone Number | | Organization | | | | + +---------+ + + | NON [facility] | | | | + +---------+ + + documented in this encounter Visit Diagnoses + + | Diagnosis | + + | Encounter for supervision of other normal in third trimester - Primary | + + documented in this encounter
--- OUTSIDE RECORDS SUMMARY | ~2020-04-04 | XMS | Encounter Summary ---
Demographics + + + | Address | [address] | | | [place] [address] | + + + | Home Phone | | + + + | Preferred Language | Unknown | + + + | Marital Status | Unmarried Domestic Partner | + + + | Hindu Affiliation | NRP | + + + | Race | Unknown | + + + | Ethnic Group | or | + + + Author + + + | Author | [facility] | + + + | Organization | [facility] | + + + | Address | Unknown | + + + | Phone | Unavailable | + + + Support + + +---------+ + | Name | Relationship | Address | Phone | + + +---------+ + | Fatuma Patel | ECON | Unknown | | + + +---------+ + Care Team Providers + +------+ + | Care Software Quality Assurance Analyst Name | Role | Phone | + [...] + + + + | 03/02/ | Anesthesia | [facility] [address] | Nimisha Alvarez, | | | 2016 | Event | [address] | [address] | | | | | [place], [place] | [address] | | | | | [address] | [place], [place] | | | | | [phone] | [address] | | | | | | [phone] | | | | | | | | | | | | Valeria Santana MD | | | | | | [address] | | | | | | [place], | | | | | | [place] [address] | | | | | | [phone] | | | | | | | | +--------+ + + + + Anesthesia Record + + + + + | Procedure Name | Responsible | Anesthesia Start | Anesthesia Stop Time | | | Anesthesiologist | Time | | + + + + + | LABOR EPIDURAL | Nimisha Alvarez MD | 03/02/17 0930 | 03/02/17 1148 | | ASSESSMENT | | | | + + + + + +----+---+ + + | Da | T | Event | Comment | | te | i | | | | | m | | | | | e | | | +----+---+ + + | 06 | 0 | Eq Check | Anesthesia machine checked Equipment verified | | /2 | 9 | | | | 5/ | 3 | | | | 20 | 0 | | | | 17 | | | | +----+---+ + + | | 0 | Pt. Check | Prior to anesthesia start, pt. Identified, examined, chart | | | 9 | | reviewed, PARQ held, anesthetic plan made or approved by | | | 3 | | attending anesthesiologist. NPO status confirmed as appropriate | | | 0 | | for procedure Preoperative evaluation: unchanged | +----+---+ + + | | 0 | Preprocedur | Pt ID confirmed, informed consent obtained, insertion site | | | 9 | e Checklist | marked, equipment available | | | 3 | | | | | 0 | | | +----+---+ + + | | 0 | An Start | | | | 9 | | | | | 3 | | | | | 0 | | | +----+---+ + + | | 0 | HR Monitor | | | | 9 | In Place | | | | 3 | | | | | 0 | | | +----+---+ + + | | 0 | Vitals | Monitors applied Vital signs checked Patient ready for anesthesia | | | 9 | Checked | | | | 3 | | | | | 0 | | | +----+---+ + + | | 0 | Epidural | | | | 9 | Start | | | | 3 | | | | | 4 | | | +----+---+ + + | | 0 | LEFT | | | | 9 | UTERINE | | | | 4 | DISPLACEMEN | | | | 2 | T | | +----+---+ + + | | 1 | Interim | Pt comfortable | | | 0 | L&D Visit | | | | 5 | | | | | 7 | | | +----+---+ + + | | 1 | Baby | | | | 1 | Delivered | | | | 4 | | | | | 2 | | | +----+---+ + + | | 1 | Anesthesia | | | | 1 | End | | | | 4 | | | | | 8 | | | +----+---+ + + | | 1 | Epidural | | | | 3 | Removed by | | | | 4 | Nurse | | | | 5 | | | +----+---+ + + +------+ | Meds | +------+ + + + | Name | Total | + + + | lidocaine 1.5% EPINEPHrine 1:200K | 3 mL | + + + | bupi-SUFentanil INF | 14.67 mL | + + + | bupivacaine 0.25% | 1.5 mL | + + + + + | No agents on file. | + + + + | No blood administrations on file. | + + +--------+ + + + | Type | Details | Placement | Removal | +--------+ + + + | Periph | 03/02/17; 0830; Eros Prakash; Kyrie; | 03/02/17 0830 by | 03/02/17 1540 by | | eral | Wrist; 18 g; None; No; Positive; | Sherlyn Prakash RN | Octavia Daniels RN | | IV | 03/02/17; 1540; Per protocol | | | +--------+ + + + | Epidur | 03/02/17; 0936; MD Max; | 03/02/17 0936 by | 03/02/17 1345 by | | al | Lumbar; 03/02/17; 1345; Per | Valeria Santana MD | Sherlyn Prakash RN | | | protocol | | | +--------+ + + + | Urethr | 03/02/17; 1050; Eros [place]; | 03/02/17 1050 by | 03/02/17 1130 by | | al | 16 Fr.; 10 mL; 03/02/17; 1130; | Sherlyn Prakash RN | Sherlyn Prakash RN | | Cathet | Per protocol | | | | er | | | | +--------+ + + + documented in this encounter Social History + +-------+ +--------+------+ | Tobacco [...] | + +--------+ + + + | ANE SPINAL | Routin | 03/02/2017 | | Results for this | | | e | 1:08 PM | | procedure are in the | | | | PDT | | results section. | + +--------+ + + + | ANE EPIDURAL | Routin | 03/02/2017 | | Results for this | | | e | 1:08 PM | | procedure are in the | | | | PDT | | results section. | + +--------+ + + + documented in this encounter Results ANE SPINAL (03/02/2017 1:08 PM PDT) + + + | Narrative | Performed At | + + + | Valeria Santana MD 03/02/2017 9:54 AM SPINAL PROCEDURE | | | TYPE Block indication: Labor analgesia Location Performed: [place] | | | Part of CSE , Indication: Labor AnalgesiaTeam Pause: Performed per | | | policyProtective Barrier: Cap, Mask, Gown and Gloves PROCEDURE | | | Pt. Position:Sitting Approach: Midline Monitors used: NIBP and SpO2 | | | Prep:ChloraPrep Pt. Fully draped ULTASOUND NEEDLE Needle Type: | | | Vazquez Gauge: 25 Length: 3.5 in Vertebral Interspace: L3 | | | Parathesias noted: No, Aspirate for blood: Negative for blood | | | ASSESSMENT See MAR for Drug and Dose, Attempts: 1st, | | | Complications: None, , Attending physically present Attending: | | | NIMISHA ALVAREZ, Performed by Resident VALERIA SANTANA Technical | | | Difficulty:Easy Sensory Assessment: Decreased in area of block Motor | | | Assessment: Deferred, Intended Analgesia: Satisfactory block in | | | appropriate fashion | | + + + ANE EPIDURAL (03/02/2017 1:08 PM PDT) + + + | Narrative | Performed At | + + + | Valeria Santana MD 03/02/2017 9:53 AM PROCEDURE NAME Epidural | | | or Caudal Information Epidural and CSE. CSE: Yes for labor | | | analgesia Location performed: Floor/Unit/ICU The patient was | | | identified, the site marked,, full PARQ done Adult or Pediatric: | | | Adult Procedure Patient position: Sitting, Epidural approach: | | | Midline, Monitors: NIBP and SpO2, Sterile prep (ChloraPrep) drape | | | and technique Technology Used: None Needle Tuohy with a 17g | | | Needle insertion depth 6 cm Catheter depth 11 cm Depth at loss | | | of resistance 6 cm on the 1st attempt Parasthesia: No. Negative | | | for blood. Vertebral Interspace: L3-4 CSF: Aspiration | | | negative for CSF, SYMONE: saline Assessment test dose given, | | | Negative test dose reaction See MAR for Drug and Dose | | | Complications: None, Technical Difficulty: Easy Intended Analgesia: | | | Satisfactory block in appropriate fashion Sensory Assessment: | | | Decreased in area of block Motor Assessment: Deferred; Narrative | | | Attending physically present NIMISHA ALVAREZPerformed by Resident: | | | VALERIA SANTANA | | + + + documented in this encounter Visit Diagnoses Not on filedocumented in this encounter Administered Medications + +--------+ +--------+------+------+ | Medication Order | MAR | Action | Dose | Rate | Site | | | Action | Date | | | | + +--------+ +--------+------+------+ | bupivacaine | Given | 03/02/20 | 1.5 mL | | | | (MARCAINE,SENSORCAINE-MPF) 0.25 % | | 17 9:36 | | | | | (2.5 mg/mL) injection | | AM PDT | | | | | INTRAPROCEDURE PRN, Starting Sun | | | | | | | 03/02/17 at 0936, Until Sun | | | | | | | 03/02/17 at 1435 | | | | | | + +--------+ +--------+------+------+ +---+---+ | | | +---+---+ + +---------+ + + +---+ | bupivacaine-SUFentanil | New Bag | 03/02/20 | 10 mL/hr | 10 mL/hr | | | INTRAPROCEDURE CONTINUOUS PRN, | | 17 9:45 | | | | | Starting 03/02/17 at 0945, | | AM PDT | | | | | Until 03/02/17 at 1435 | | | | | | + +---------+ + + +---+ +---+---+ | | | +---+---+ + +-------+ +------+---+---+ | lidocaine-EPINEPHrine | Given | 03/02/20 | 3 mL | | | | (XYLOCAINE-MPF WITH EPINEPHRINE) | | 17 9:37 | | | | | 1.5 %-1:200,000 injection | | AM PDT | | | | | INTRAPROCEDURE PRN, Starting [place] | | | | | | | 03/02/17 at 0937, Until Sun | | | | | | | 03/02/17 at 1435 | | | | | | + +-------+ +------+---+---+ +---+---+ | | | +---+---+ documented in this encounter"
--- OUTSIDE RECORDS SUMMARY | ~2020-04-04 | XMS | Encounter Summary ---
Demographics + + + | Address | [address] | | | [place] [address] | + + + | Home Phone | | + + + | Preferred Language | Unknown | + + + | Marital Status | Unmarried Domestic Partner | + + + | Restoration Affiliation | NRP | + + + | Race | Unknown | + + + | Ethnic Group | or | + + + Author + + + | Author | [facility] | + + + | Organization | [facility] | + + + | Address | Unknown | + + + | Phone | Unavailable | + + + Support + + +---------+ + | Name | Relationship | Address | Phone | + + +---------+ + | Fatuma Patel | ECON | Unknown | | + + +---------+ + Care Team Providers + +------+ + | Care Card Placer Name | Role | Phone | + +------+ + | No Pcp Per Patient | PCP | Unavailable | + +------+ + Reason for Visit + + + | Reason | Comments | + + + | Insertion of IUD | | + + + Encounter Details +--------+ + + + + | Date | Type | Department | Care Team | Description | +--------+ + + + + | 04/14/ | [facility] | Alysha Portillo MD | Insertion of IUD | | 2017 | | [facility] [address] | [address] | | | | | [facility] [address] | [facility], | | | | | [place], [facility] floor | [place] [address] | | | | | [place], [place] | [phone] | | | | | [address] | | | | | | [phone] | | | +--------+ + + + [...] documented as of this encounter Progress Notes Alysha Portillo MD - 04/14/2017 3:00 PM PDTI was present for the entire IUD insertion proced ure on 04/14/17 as described in the note for this encounter. MD Alysha Nolan MD [facility] AT [address] [id number] [phone] signed by Alysha Portillo MD at 04/14/2017 4:01 PM PDTdocumented i n this encounter Plan of Treatment Not on filedocumented as of this encounter Procedures + +--------+ + + + | Procedure Name | Priori | Date/Time | Associated Diagnosis | Comments | | | ty | | | | + +--------+ + + + | [place] INSERT | Routin | 04/14/2017 | Encounter for IUD | | | INTRAUTERINE DEVICE | e | 4:00 PM | insertion | | | | | PDT | | | + +--------+ + + [...] hr (5 years) intrauterine | | 17 4:00 | | | | | device 1 each 1 each, | | PM PDT | | | | | intrauterine, ONCE, 1 dose, Mon | | | | | | | 04/14/17 at 1615 | | | | | | + +--------+ +--------+------+------+ +---+---+ | | | +---+---+ documented in this encounter"
--- OUTSIDE RECORDS SUMMARY | ~2020-04-04 | XMS | Encounter Summary ---
Demographics + + + | Address | [address] | | | [place] [address] | + + + | Home Phone | | + + + | Preferred Language | Unknown | + + + | Marital Status | Unmarried Domestic Partner | + + + | Episcopalian Affiliation | NRP | + + + | Race | Unknown | + + + | Ethnic Group | or | + + + Author + + + | Author | [facility] [facility] | + + + | Organization | [facility] | + + + | Address | Unknown | + + + | Phone | Unavailable | + + + Support + + +---------+ + | Name | Relationship | Address | Phone | + + +---------+ + | Fatuma Patel | ECON | Unknown | | + + +---------+ + Care Team Providers + +------+ + | Care Fire Hydrant Operator Name | Role | Phone | + +------+ + | No Pcp Per Patient | PCP | Unavailable | + +------+ + Encounter Details +--------+ + + + + | Date | Type | Department | Care Team | Description | +--------+ + + + + | 02/24/ | Document-Sc | UNKNOWN DEPARTMENT | Unknown . | | | 2017 | anned | [address] | | | | | | [address] | | | | | | [place], [place] | | | | | | [address] | | | +--------+ + + + [...]
--- OUTSIDE RECORDS SUMMARY | ~2020-04-04 | XMS | Encounter Summary ---
Demographics + + + | Address | [address] | | | [place] [address] | + + + | Home Phone | | + + + | Preferred Language | Unknown | + + + | Marital Status | Unmarried Domestic Partner | + + + | Voodoo Affiliation | NRP | + + + | Race | Unknown | + + + | Ethnic Group | or | + + + Author + + + | Author | [facility] | + + + | Organization | [facility] | + + + | Address | Unknown | + + + | Phone | Unavailable | + + + Support + + +---------+ + | Name | Relationship | Address | Phone | + + +---------+ + | Fatuma Patel | ECON | Unknown | | + + +---------+ + Care Team Providers + +------+ + | Care Child Welfare Manager Name | Role | Phone | + +------+ + | No Pcp Per Patient | PCP | Unavailable | + +------+ + Encounter Details +--------+------+ + + + | Date | Type | Department | Care Team | Description | +--------+------+ + + + | 02/28/ | Lab | Laboratory at [facility] | | care, third | | 2017 | | [address] | | trimester | | | | [address] [facility] | | | | | | [facility], [facility] floor | | | | | | [place], [place] | | | | | | [address] | | | | | | [phone] | | | +--------+------+ + + + Social History + +-------+ [...] documented as of this encounter Progress Notes Nette Bell MD - 02/28/2017 4:30 PM PDTNormal lab, review in careEle ctronically signed by Nette Bell MD at 03/03/2017 8:05 AM PDTdocumented in this encount er Plan of Treatment Not on filedocumented as of this encounter Procedures + +--------+ + + + | Procedure Name | Priori | Date/Time | Associated Diagnosis | Comments | | | ty | | | | + +--------+ + + + | CMV IGG AND IGM ABS, | Routin | 02/28/2017 | care, | Results for this | | SERUM | e | 4:35 PM | third trimester | procedure are in the | | | | PDT | | results section. | + +--------+ + + + documented in this encounter Results CMV IGG AND IGM [...] by | | | | | | [employer],[address] | | | | | | [address], [facility] [place] | | | | | | [address] | | | | | | [phone] | | | | | | Hung kaur MD, | | | | | | [...] [facility] | [address] | [place], [place] | | | [employer] [employer] | | [id number] | | + + + + + documented in this encounter Visit Diagnoses + + | Diagnosis | + + | care, third trimester | + + documented in this encounter"
--- OUTSIDE RECORDS SUMMARY | ~2020-04-04 | XMS | Encounter Summary ---
Demographics + + + | Address | [address] | | | [place] [address] | + + + | Home Phone | | + + + | Preferred Language | Unknown | + + + | Marital Status | Unmarried Domestic Partner | + + + | Confucianism Affiliation | NRP | + + + | Race | Unknown | + + + | Ethnic Group | or | + + + Author + + + | Author | [facility] [facility] | + + + | Organization | [facility] [employer] [facility] | + + + | Address | Unknown | + + + | Phone | Unavailable | + + + Support + + +---------+ + | Name | Relationship | Address | Phone | + + +---------+ + | Fatuma Patel | ECON | Unknown | | + + +---------+ + Care Team Providers + +------+ + | Care Executive Vice President And Chief Operating Officer Name | Role | Phone | + +------+ + | No Pcp Per Patient | PCP | Unavailable | + +------+ + Encounter Details +--------+ + + + + | Date | Type | Department | Care Team | Description | +--------+ + + + + | 04/14/ | Pharmacy | Outpatient Retail | | | | 2016 | Visit [facility] | | | | | | [address] | | | | | | [address] [place], [place] | | | | | | [address] | | | | | | [phone] | | | +--------+ + + + [...]
--- OUTSIDE RECORDS SUMMARY | ~2020-04-04 | XMS | Encounter Summary ---
Demographics + + + | Address | [address] | | | [place] [address] | + + + | Home Phone | | + + + | Preferred Language | Unknown | + + + | Marital Status | Unmarried Domestic Partner | + + + | Latter Day Affiliation | NRP | + + + | Race | Unknown | + + + | Ethnic Group | or | + + + Author + + + | Author | [facility] [employer] [facility] | + + + | Organization | [facility] [employer] [facility] | + + + | Address | Unknown | + + + | Phone | Unavailable | + + + Support + + +---------+ + | Name | Relationship | Address | Phone | + + +---------+ + | Fatuma Patel | ECON | Unknown | | + + +---------+ + Care Team Providers + +------+ + | Care Card Hand Name | Role | Phone | + +------+ + | No Pcp Per Patient | PCP | Unavailable | + +------+ + Encounter Details +--------+ + + + + | Date | Type | Department | Care Team | Description | +--------+ + + + + | 03/10/ | [facility] Alysha Plata, | | | 2016 | | [facility] | 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
--- NOTE | 2020-04-04 19:22 | PR ---
[facility] [address] [place], [place] [address] Signed Progress Notes IP Datetime Report Generated by CPN: 04/04/2020 19:21 PROGRESS NOTES: [id number] Impression: Normal Progression of Labor Procedures: Artificial ROM Plan: Continue Present Management; Anticipate Vaginal Delivery VITAL SIGNS: [id number] Vital Signs: Reviewed; Within Normal Limits EXAM: [id number] Dilatation: 7.0 Effacement: 80 Station: -2 Contractions: every 2-3 minutes MEMBRANES: [id number] Membranes Status: Ruptured Comments: AROM with slight blood tinged fluid. Will watch closely FETUS A: [id number] FHR Baseline: 150 Variability: Moderate 6-25bpm Accelerations: 15X15 Presentation: Vertex FETUS B: [id number] Signing Physician: Edgar Stovall MD Copies: ~ *Electronically Signed* 04/04/201920 EDGAR STOVALL MD PATIENT NAME: KAYLYN KUHN PROGRESS NOTE DATE OF : 93 PHYSICIAN: EDGAR STOVALL MD RPT #: [id number] REPORT IS CONFIDENTIAL AND NOT TO BE RELEASED WITHOUT AUTHORIZATION
--- NOTE | 2020-04-05 11:16 | PR ---
[facility] [address] [facility] [place] [address] Signed PP Progress Notes Datetime Report Generated by CRISTIANO: 04/05/2020 11:16 SUBJECTIVE: [id number] Pain: Within Normal Limits Vital Signs: [id number] Vital Signs: Reviewed; Within Normal Limits Cardiovascular: Not Done Respiratory: Not Done Abdomen/Uterus: Abnormal Lochia: Normal Vulva/Perineum: Not Done Breasts: Not Done CVA Tenderness: Not Done Extremities: Normal Incision: Not Applicable Progress: Normal Exam Comments: Fundus firm, NT @ U-1. H/H 11.8/35.6, WBC 18.4, plat 195k IMPRESSION/PLAN/PROCEDURES: [id number] Impression: Normal Progression Plan: Continue Present Management Progress Notes: Doing well. Will continue with probable D/C in am. Signing Physician: Michela Gamino MD Copies: ~ *Electronically Signed* 04/05/20 1116 MICHELA GAMINO MD PATIENT NAME: KAYLYN KUHN PROGRESS NOTE DATE OF : 93 PHYSICIAN: MICHELA GAMINO MD RPT #: [id number] REPORT IS CONFIDENTIAL AND NOT TO BE RELEASED WITHOUT AUTHORIZATION
--- NOTE | 2020-04-06 07:29 | PR ---
[facility] [address] [facility] [place], [place] [address] Signed PP Progress Notes Datetime Report Generated by CPN: 04/06/2020 07:28 SUBJECTIVE: [id number] Pain: Within Normal Limits Vital Signs: [id number] Vital Signs: Reviewed; Within Normal Limits EXAM: Ongoing Cardiovascular: Not Done Respiratory: Not Done Abdomen/Uterus: Abnormal Lochia: Normal Vulva/Perineum: Not Done Breasts: Not Done CVA Tenderness: Not Done Extremities: Normal Incision: Not Applicable Progress: Normal Exam Comments: Fundus firm, NT @ U-2. IMPRESSION/PLAN/PROCEDURES: [id number] Impression: Normal Progression Plan: Discharge Progress Notes: Doing well. She is ready for D/C. Signing Physician: Michela Gamino MD Copies: ~ *Electronically Signed* 04/06/20 0728 MICHELA GAMINO MD PATIENT NAME: KAYLYN KUHN PROGRESS NOTE DATE OF : 93 PHYSICIAN: MICHELA GAMINO MD RPT #: [id number] REPORT IS CONFIDENTIAL AND NOT TO BE RELEASED WITHOUT AUTHORIZATION
== END 2020-04-06 11:45 | disposition home or self-care (01) | DRG 807 ==
LOC: FBCO 18:00 → FBC 18:28
PROVIDERS: ADMIT Obstetrics & Gynecology; ATTEND Obstetrics & Gynecology
PROC: 10E0XZZ Delivery of Products of Conception, External Approach (ICD-10-PCS; principal; 2020-04-04)
PROC: 10907ZC Drainage of Amniotic Fluid, Therapeutic from Products of Conception, Via Natural or Artificial Opening (ICD-10-PCS; 2020-04-04)
DX: O43.193 Other malformation of placenta, third trimester (principal); Z37.0 Single live birth; Z3A.39 39 weeks gestation of pregnancy; O99.214 Obesity complicating childbirth; E66.9 Obesity, unspecified
CPT/HCPCS: 36415; 85027; A9270; J2001; J2590

== ENCOUNTER 2020-10-28 18:57 | Emergency (ER) | payer OTHER ==
[~2020-10-28] VITALS: Ht 154.9 cm; Wt 70.8 kg
[2020-10-28] MEDS ORDERED: CEPHALEXIN500 MG PO (20:36)
== END 2020-10-28 20:48 | disposition home or self-care (01) ==
LOC: ED 18:57
DX: H66.91 Otitis media, unspecified, right ear (principal)
CPT/HCPCS: 99282